=== PATIENT | female | born 1955 | race Caucasian/White ===

== ENCOUNTER 2021-05-05 08:24 | Outpatient (CLI) | payer MEDICARE, MEDICAID, SELFPAY ==
--- NOTE | ~2021-05-05 | XR_ITS ---
XR knee RT min 4V 05/05/2021 09:07 Indication: Right knee pain Procedure: 4 views right knee Comparison: No prior studies for comparison. Findings: There is moderate-severe tricompartment osteoarthritis of the right knee. Small joint effus ion. No foreign bodies. No acute fracture or traumatic malalignment. Osteopenia. Impression: 1: Moderate-severe tricompartment osteoarthritis. 2: Small joint effusion. Reviewed, dictated and finalized at location B. Impression: 1: Moderate-severe tricompartment osteoarthritis. 2: Small joint effusion.
== END 2021-05-05 08:25 | disposition home or self-care (01) ==
LOC: CHSIMG 08:30
PROVIDERS: PCP Emergency Medicine; Visit Provider Orthopaedic Surgery
DX: M25.561 Pain in right knee (principal)
CPT/HCPCS: 73564

== ENCOUNTER 2021-07-14 02:06 | Day surgery (SDC) | payer MEDICARE, MEDICAID, SELFPAY ==
[2021-07-02 13:20] VITALS: BMI 32.1
--- NOTE | 2021-07-14 07:24 | P.HP_ITS ---
History of Present Illness History of Present Illness Consent: Risks, benefits, and alternatives have been discussed and questions answered. Patient agrees to proceed with procedure. Chief complaint: anemia Narrative: Clara Paredes is a 66 year old female referred for investigation of anemia. She has not seen blood in her stools. She does have a family history of colon cancer, her mother had colon cancer when in her 80s Review of Systems Review of Systems: All systems reviewed & are unremarkable except as noted in HPI and below PMFSH Past Medical History Medical History Acute medial meniscus tear of right knee Arthritis Arthritis of knee, right Chronic, continuous use of opioids Hair loss Hypertension Obese Wears glasses Weight gain Surgical History Surgical History History of open reduction and internal fixation (ORIF) procedure left ankle 1973 Dr. Randall Family History Family History Other Arthritis Asthma Cerebrovascular accident Diabetes mellitus Hypertension Lung disease Social History Social History Smoking packs per day: 1 Smoking cigarettes per day: 20.0 Years smoked: 40 Smoking pack-years: 40.00 Smoking status: Current every day smoker Tobacco type: cigarettes Alcohol intake: never Substance use: never Substance use type: prescription drug Other substance usage details: [place] for chronic back pain and right knee pain Living arrangements: with friend(s) Additional living arrangements comments: fiance Gender identity (if verbalized by the patient): Female Sexual Orientation (if Verbalized by the Patient): Straight or Heterosexual Spiritual care concerns: No Meds Home Medications and Allergies Home Medications Medication Instructions Recorded Confirmed Type alendronate 70 mg tablet 70 mg PO DAILY tablet 05/05/21 07/14/21 History cyclobenzaprine 10 mg tablet 10 mg PO DAILY tablet 05/05/21 07/14/21 History gabapentin 100 mg capsule 100 mg PO DAILY 05/05/21 07/14/21 History hydrocodone 5 mg-acetaminophen 325 1 tablet PO QHS PRN 05/05/21 07/14/21 History mg tablet lisinopril 20 mg tablet 20 mg PO DAILY 05/05/21 07/14/21 History multivitamin 1 tablet PO DAILY 05/05/21 07/14/21 History oxybutynin chloride 5 mg tablet 5 mg PO DAILY 05/05/21 07/14/21 History trazodone 50 mg tablet 50 mg PO DAILY tablet 05/05/21 07/14/21 History Allergies Allergy/AdvReac Type Severity Reaction Status Date / Time Penicillins Allergy Unknown Swelling Verified 07/14/21 09:26 of the body Exam Resp: Auscultation: clear to auscultation bilaterally Cardio: Rate: regular rate Rhythm: regular rhythm GI: GI Palp: Yes Soft to palpation and No Tenderness to palpation present (GI) Assessment and Plan Assessment and plan (1) Anemia: Code(s): D64.9 - Anemia, unspecified Status: Acute Assessment and Plan: EGD with possible biopsy or dilatation or cautery.Colonoscopy with possible biopsy or polypectomy or cautery or injection of substances.
--- NOTE | 2021-07-14 07:42 | WPDANESEPPF ---
Anes - Initial Pre Proc Eval Procedure: Operation Date: 07/14/21 10:00 Proposed Procedures p Esophagogastroduodenoscopy & Colonoscopy - Filiberto Godoy MD Date/Time: 07/14/21 07:42 Surgeon: Filiberto Godoy MD Pre Op Diagnosis: anemia Patient Data Age: 66 Gender: F Height: 1.63 m Weight: 85 kg Allergies Allergy/AdvReac Type Severity Reaction Status Date / Time Penicillins Allergy Unknown Swelling Verified 07/14/21 09:26 of the body Home Medications Medication Instructions Recorded Confirmed Type alendronate 70 mg tablet 70 mg PO DAILY tablet 05/05/21 07/14/21 History cyclobenzaprine 10 mg tablet 10 mg PO DAILY tablet 05/05/21 07/14/21 History gabapentin 100 mg capsule 100 mg PO DAILY 05/05/21 07/14/21 History hydrocodone 5 mg-acetaminophen 325 1 tablet PO QHS PRN 05/05/21 07/14/21 History mg tablet lisinopril 20 mg tablet 20 mg PO DAILY 05/05/21 07/14/21 History multivitamin 1 tablet PO DAILY 05/05/21 07/14/21 History oxybutynin chloride 5 mg tablet 5 mg PO DAILY 05/05/21 07/14/21 History trazodone 50 mg tablet 50 mg PO DAILY tablet 05/05/21 07/14/21 History Patient hx anesthesia problems: none Family hx anesthesia problems: none PMFSH Past Medical History Medical History (Updated 07/14/21 @ 07:42 by Homero Vidal DO) Acute medial meniscus tear of right knee Arthritis Arthritis of knee, right Chronic, continuous use of opioids Hair loss Hypertension Obese Wears glasses Weight gain Surgical History Surgical History History of open reduction and internal fixation (ORIF) procedure left ankle 1974 Dr. Randall Family History Family History Other Arthritis Asthma Cerebrovascular accident Diabetes mellitus Hypertension Lung disease Social History Social History Smoking packs per day: 1 Smoking cigarettes per day: 20.0 Years smoked: 40 Smoking pack-years: 40.00 Smoking status: Current every day smoker Tobacco type: cigarettes Alcohol intake: never Substance use: never Substance use type: prescription drug Other substance usage details: [place] for chronic back pain and right knee pain Living arrangements: with friend(s) Additional living arrangements comments: fiance Gender identity (if verbalized by the patient): Female Sexual Orientation (if Verbalized by the Patient): Straight or Heterosexual Spiritual care concerns: No Anes - Eval Final PreProcedure Day of Procedure 07/14/21 07:42 Patient weight: obese Heart: regular rate and rhythm Lungs: clear to auscultation and normal air movement Airway: Mallampati scale class II Neurological: alert and oriented Last oral intake: >/= 8 hours ASA classification: III Emergent: no Anesthetic plan: proceed Anesthesia type and monitoring: general GIVS and standard monitoring Informed Consent: The patient's anesthetic plan and its attendant risks and benefits were discussed with the patient/family/POA. Questions were solicited and answers provided to the satisfaction of the patient/family/POA.
[2021-07-14 09:30] VITALS: BP 134/56; PULSE 90; RESP 18; TEMP 35.6; O2SAT 94; BMI 32.1
[2021-07-14] MEDS: LACTATED RINGERS 1,000 ML 150 ML IV CONT (09:45)
[2021-07-14 10:41] VITALS: BP 86/40; PULSE 78; RESP 22; O2SAT 99
[2021-07-14 10:51] VITALS: BP 101/56; PULSE 82; RESP 22; O2SAT 100
[2021-07-14 11:01] VITALS: BP 125/70; PULSE 78; RESP 20; O2SAT 96
== END 2021-07-14 11:14 | disposition home or self-care (01) ==
PROVIDERS: PCP Emergency Medicine; Visit Provider Internal Medicine Gastroenterology
PROC: 0DJ08ZZ Inspection of Upper Intestinal Tract, Via Natural or Artificial Opening Endoscopic (ICD-10-PCS; CPT 43235; principal; 2021-07-14 10:00)
DX: Z12.11 Encounter for screening for malignant neoplasm of colon (principal); D12.5 Benign neoplasm of sigmoid colon; K29.70 Gastritis, unspecified, without bleeding; D64.9 Anemia, unspecified; K57.30 Diverticulosis of large intestine without perforation or abscess without bleeding; K21.9 Gastro-esophageal reflux disease without esophagitis; M19.90 Unspecified osteoarthritis, unspecified site; I10 Essential (primary) hypertension; F17.210 Nicotine dependence, cigarettes, uncomplicated; E66.9 Obesity, unspecified; Z68.32 Body mass index [BMI] 32.0-32.9, adult
CPT/HCPCS: 43239; 45380; 45385; 87081; 88305; J2704; J7120

== ENCOUNTER 2023-11-01 08:43 | Emergency (ER) | payer MEDICARE, MEDICAID, SELFPAY ==
[2023-11-01] VITALS (29 sets, daily range): BP systolic 91–133; BP diastolic 51–78; PULSE 68–89; RESP 18–31; TEMP 36.8; O2SAT 70–95
--- NOTE | ~2023-11-01 | XR_ITS ---
Portable chest x-ray Comparison: None Clinical History: Dyspnea Findings: Lungs are clear, without focal consolidation or pleural effusion. Cardiomediastinal silho uette is stable. Bones and soft tissues are unremarkable. Impression: Clear lungs. Reviewed, dictated and finalized at location M. POURER Impression: Clear lungs.
--- NOTE | 2023-11-01 08:53 | ECG_ITS ---
Measurements Intervals [place] Rate: 75 P: 69 TN: 172 QRS: 139 QRSD: 94 T: 45 QT: 339 QTc: 381 Interpretive Statements SINUS RHYTHM WITH MARKED SINUS ARRHYTHMIA BASELINE ARTIFACT POSSIBLE RIGHT VENTRICULAR HYPERTROPHY [SOME/ALL OF: PROMINENT R IN V1, LATE TRANSITION, RAD, MENDY, SSS] LOW-VOLTAGE QRS IN PRECORDIAL LEADS BORDERLINE ECG NO PREVIOUS ECG AVAILABLE FOR COMPARISON Electronically Signed On 11-01-2023 17:05:12 TECHNICAL COMMUNICATION [employer] by Bran Bauer M.D.
--- NOTE | 2023-11-01 09:22 | ED.GENADULT ---
HPI - General Adult General Chief complaint: Shortness of Breath/Dyspnea Stated complaint: sob History of Present Illness HPI narrative: 68yo woman history of COPD, presents with shortness of breath. She is found to be cyanotic with cold fingers and very swollen legs. SpO2 on arrival is 67% on 4Lpm. Placed to BiPAP. No chest pain, fever. Chronic cough is nonproductive and no worse than normal. Lungs diminished, no rhonchi. CXR clear. Trop 251, BNPep 11k. EKG with right ventricular hypertrophy, likely cor pulmonale, but no sign of ischemia. NASIR with Cr 2.6, potassium 7.0. Calcium, Bicarb given. Related Data Home Medications Medication Instructions Recorded Confirmed alendronate 70 mg tablet 70 mg PO WEEKLY 05/05/21 11/01/23 cyclobenzaprine 10 mg tablet 10 mg PO DAILY PRN Muscle Pain 05/05/21 11/01/23 hydrocodone 5 mg-acetaminophen 325 1 tablet PO QID PRN Pain 05/05/21 11/01/23 mg tablet multivitamin 1 tablet PO DAILY 05/05/21 11/01/23 oxybutynin chloride 5 mg tablet 5 mg PO DAILY 05/05/21 11/01/23 trazodone 50 mg tablet 50 mg PO DAILY 05/05/21 11/01/23 albuterol sulfate 90 mcg/actuation 2 inh inhalation QID PRN Shortness 11/01/23 11/01/23 aerosol inhaler Of Breath fluticasone propionate 230 1 inh inhalation BID 11/01/23 11/01/23 mcg-salmeterol 21 mcg/actuation HFA inhaler (Advair HFA) losartan 50 mg-hydrochlorothiazide 1 tablet PO DAILY 11/01/23 11/01/23 12.5 mg tablet Allergies Allergy/AdvReac Type Severity Reaction Status Date / Time Penicillins Allergy Unknown Swelling Verified 11/01/23 09:45 of the body Review of Systems Review of Systems: All systems reviewed & are unremarkable except as noted in HPI and below Constitutional: Constitutional: Denies chills and Denies fever(s) ENT: Denies dysphagia Cardiovascular: Cardiovascular: Denies chest pain Respiratory: Respiratory: Reports chest congestion, Reports cough and Reports dyspnea Gastrointestinal: Gastrointestinal: Denies abdominal pain Musculoskeletal: Musculoskeletal: Denies back pain and Denies myalgias Neurologic: Denies confusion and Denies dizziness [facility] Past Medical History Medical History Acute medial meniscus tear of right knee Arthritis Arthritis of knee, right Chronic, continuous use of opioids Hair loss Hypertension Obese Wears glasses Weight gain Surgical History Surgical History History of open reduction and internal fixation (ORIF) procedure left ankle 1973 Dr. Randall Family History Family History Other Arthritis Asthma Cerebrovascular accident Diabetes mellitus Hypertension Lung disease Social History Social History Smoking packs per day: 1 Smoking cigarettes per day: 20.0 Years smoked: 40 Smoking pack-years: 40.00 Smoking status: Current every day smoker Tobacco type: cigarettes Alcohol intake: never Substance use: never Substance use type: prescription drug Other substance usage details: [place] for chronic back pain and right knee pain Living arrangements: with friend(s) Additional living arrangements comments: fiance Gender identity (if verbalized by the patient): Female Sexual Orientation (if Verbalized by the Patient): Straight or Heterosexual Spiritual care concerns: No Exam Const: General: alert and ill appearing Orientation/consciousness: patient oriented x3 HENMT: Head: normal to inspection, no contusions and no hematomas Eyes: Conjunctivae: conjunctivae normal Resp: Effort & Inspection: labored, retractions and uses accessory muscles Auscultation: diminished lung sounds Other: pursed lip breathing Cardio: Rate: regular rate Rhythm: regular rhythm Heart sounds: Murmur heart sound present Other: 01/18 systoli
[2023-11-01] MEDS: IPRATROPIUM 0.5 MG/ALBUTEROL SULFATE 2.5 MG AMPUL.NEB 3 ML INHALATION (09:24)
[2023-11-01 09:28] LABS: Basophils Absolute Auto 0.02 K/mm3 (0.00-0.10); Basophils Percent Auto 0.2 % (0.0-1.0); Eosinophils Absolute Auto 0.04 K/mm3 (0.02-0.50); Eosinophils Percent Auto 0.3 % (1.0-6.0); Hematocrit 54.2 % (35.0-42.0); Hemoglobin 16.2 g/dL (11.7-13.8); Immature Granulocyte Absolute 0.09 K/mm3 (0.00-0.00); Immature Granulocyte Percent A 0.7 % (0.0-0.0); Lymphocytes Absolute Auto 1.16 K/mm3 (1.10-4.50); Lymphocytes Percent Auto 9.5 % (18.0-42.0); Mean Corpuscular HGB Conc 29.9 g/dL (32.0-36.0); Mean Corpuscular Hemoglobin 27.8 pg (27.0-31.0); Mean Corpuscular Volume 93.1 fL (78.0-102.0); Mean Platelet Volume 10.9 fl (9.2-11.8); Monocytes Absolute Auto 0.85 K/mm3 (0.10-0.90); Monocytes Percent Auto 6.9 % (2.0-11.0); Neutrophils Absolute Auto 10.1 K/mm3 (1.7-7.2); Neutrophils Percent Auto 82.4 % (50.0-70.0); Nucleated Red Blood Cells Absolute Auto 0.12 K/mm3 (0.00-0.00); Platelet Count Result 247 K/mm3 (150-420); Red Blood Count 5.82 M/mm3 (4.20-5.40); Red Cell Distribution Width 20.8 % (11.6-14.4); White Blood Count 12.2 K/mm3 (4.8-10.8)
[2023-11-01] MEDS: ALBUTEROL SULFATE NEB 2.5 MG/3 ML INH 10 MG INHALATION (09:37)
[2023-11-01 09:49] LABS: Alanine Aminotransferase 32 U/L (14-59); Albumin Level 2.7 g/dL (3.4-5.0); Alkaline Phosphatase 118 U/L (46-116); Anion Gap -1 mmol/L (8-16); Aspartate Amino Transferase 95 U/L (15-37); Blood Urea Nitrogen 75 mg/dL (7-18); Calcium 9.4 mg/dL (8.5-10.1); Carbon Dioxide 38 mmol/L (21-32); Chloride 90 mmol/L (98-108); Estimated CRCL calculation 20 ml/min; Estimated Glomerular Filt Rate 19; Glucose 104 mg/dL (70-99); NT Pro B Type Natriuretic Pept 11742 pg/mL (0-125); Osmolality Calculated 286 mOsm/kg (285-295); Sodium 127 mmol/L (136-145); Total Protein 7.8 g/dL (6.4-8.2)
[2023-11-01 09:51] LABS: Lactic Acid Reflex 1.6 mmol/L (0.4-2.0)
--- NOTE | 2023-11-01 09:52 | PC.NURSE ---
lab reports Potassium of 7 and troponin 251, specimen was hemolyzed, redrawing labs right now.
[2023-11-01 10:01] LABS: Creatine Kinase 241 U/L (26-192); Magnesium 2.4 mg/dL (1.8-2.4)
[2023-11-01] MEDS: SODIUM CHLORIDE 0.9% IV 1,000 ML 250 ML IV CONT (11:12)
[2023-11-01 11:13] LABS: Base Excess ABG 0.5 mmol/L (0-2); HCO3 ABG 30.6 mmol/L (23-29); Oxygen Content ABG 20.9 %vol (16.0-22.0); Oxygen Saturation ABG 94.1 % (95-97); Oxyhemoglobin 87.7 % (94-100); PO2 ABG 83.9 mmHg (75-85); Total Hemoglobin 16.9 g/dL (12.0-18.0); pH ABG 7.24 (7.35-7.45)
[2023-11-01 11:15] LABS: Device BIPAP; Modified Allen's Test Pass; PCO2 ABG 73.8 mmHg (35-45); Site Drawn LEFT RADIAL
[2023-11-01] MEDS: SODIUM BICARBONATE 8.4% 50 MEQ/50 ML SYRINGE IV PUSH (11:15)
--- NOTE | 2023-11-01 11:15 | PC.NURSE ---
Lab reports critical PCO2 of 73.8, ERP made aware.
[2023-11-01 11:17] LABS: Liters per Minute 4.1 LPM
[2023-11-01 11:19] LABS: Expiratory Pressure 6 cmH2O; Inspiratory Pressure 12 cmH2O
--- NOTE | 2023-11-01 11:28 | PC.NURSE ---
Lab repots potassium of 5.3 on redraw. ERP made aware.
--- NOTE | 2023-11-01 11:50 | PCRCNOTE ---
per verbal order incresed IPAP to 14, due to blood gas results.
[2023-11-01 11:59] LABS: Influenza A QL RT-PCR Negative (Negative); Influenza B QL RT-PCR Negative (Negative); RSV RNA, RT-PCR Negative (Negative); SARS-CoV-2 RNA PCR Negative (Negative)
[2023-11-01] MEDS: FUROSEMIDE INJ 100 MG/10 ML VIAL 80 MG IV PUSH (12:10)
--- NOTE | 2023-11-07 15:01 | PC.NURSE ---
final blood culture reports x2 reviewed. no growth after 5 days. no change in plan of care.
== END 2023-11-01 15:00 | disposition home or self-care (01) ==
PROVIDERS: Emergency Provider Emergency Medicine; PCP Emergency Medicine
DX: J96.22 Acute and chronic respiratory failure with hypercapnia (principal); J96.21 Acute and chronic respiratory failure with hypoxia; R79.89 Other specified abnormal findings of blood chemistry; I11.9 Hypertensive heart disease without heart failure; J44.1 Chronic obstructive pulmonary disease with (acute) exacerbation; F17.210 Nicotine dependence, cigarettes, uncomplicated; Z79.891 Long term (current) use of opiate analgesic
CPT/HCPCS: 36415; 36600; 71045; 80053; 82550; 82805; 83605; 83735; 83880; 84484; 85025; 87040; 87637; 93005; 94640; 96361; 96374; 96375; 99284; J1100; J1940; J7030

== ENCOUNTER 2024-02-29 12:46 | Outpatient (CLI) | payer MEDICARE, MEDICAID, SELFPAY ==
--- NOTE | ~2024-02-29 | CT_ITS ---
CT Scan of the Chest without Contrast: Clinical Indication: Lung cancer screening, nicotine dependence Technique: Contiguous sections were acquired throughout the chest without intravenous contrast. Dose reduction technique was used on this scan by utilizing automated exposure control and iterative recon struction technique. The dose-length product (DLP) was 156.98 mGy-cm. Findings: There is no evidence of any significant mediastinal, hilar or axillary lymphadenopathy. Calcified med iastinal and right hilar lymph nodes are present. The mediastinal soft tissues appear normal. There is no evidence of pleural or pericardial effusion. There is linear scarring at the right upper lobe and lingula. No pulmonary nodule evident. There is a dditional atelectatic change at the lung bases bilaterally. Images through the upper abdomen reveal no abnormalities. Impression: Lung RADS 1: Negative. 12 month follow-up screening CT advised. Reviewed, dictated and finalized at [facility]. Impression: Lung RADS 1: Negative. 12 month follow-up screening CT advised.
== END 2024-02-29 12:47 | disposition home or self-care (01) ==
LOC: CHSIMG 12:47
PROVIDERS: PCP Emergency Medicine; Visit Provider Internal Medicine Pulmonary Disease
DX: Z87.891 Personal history of nicotine dependence (principal)
CPT/HCPCS: 71271

== ENCOUNTER 2025-05-12 18:10 | Emergency (ER) | payer OTHER, SELFPAY ==
[2025-05-12] VITALS (7 sets, daily range): BP systolic 116–144; BP diastolic 38–78; PULSE 82–100; RESP 16–18; TEMP 36.8; O2SAT 92–98
[2025-05-12] MEDS: SODIUM CHLORIDE 0.9% IV 1,000 ML 999 ML IV CONT (18:48)
--- NOTE | 2025-05-12 19:00 | PC.NURSE ---
ASSUMED CARE. REPORT RECEIVED FROM RICKEY HENSLEY. PATIENT CURRENTLY RESTING ON STRETCHER. CALL LIGHT IN REACH. LAB WORK IN PROCESS.
[2025-05-12 19:03] LABS: Basophils Absolute Auto 0.02 K/mm3 (0.00-0.10); Basophils Percent Auto 0.3 % (0.0-1.0); Eosinophils Absolute Auto 0.16 K/mm3 (0.02-0.50); Eosinophils Percent Auto 2.1 % (1.0-6.0); Hematocrit 33.3 % (35.0-42.0); Hemoglobin 10.3 g/dL (11.7-13.8); Immature Granulocyte Absolute 0.05 K/mm3 (0.00-0.00); Immature Granulocyte Percent A 0.7 % (0.0-0.0); Lymphocytes Absolute Auto 1.08 K/mm3 (1.10-4.50); Lymphocytes Percent Auto 14.4 % (18.0-42.0); Mean Corpuscular HGB Conc 30.9 g/dL (32-36); Mean Corpuscular Hemoglobin 26.2 pg (27.0-31.0); Mean Corpuscular Volume 84.7 fL (78.0-102.0); Mean Platelet Volume 9.2 fl (9.2-11.8); Monocytes Absolute Auto 0.62 K/mm3 (0.10-0.90); Monocytes Percent Auto 8.3 % (2.0-11.0); Neutrophils Absolute Auto 5.56 K/mm3 (1.70-7.20); Neutrophils Percent Auto 74.2 % (50.0-70.0); Platelet Count Result 261 K/mm3 (150-420); Red Blood Count 3.93 M/mm3 (4.20-5.40); Red Cell Distribution Width 20.4 % (11.6-14.4); White Blood Count 7.5 K/mm3 (4.8-10.8)
[2025-05-12] MEDS: levoFLOXacin 500 MG/D5W 100 ML 500 MG/100 ML BAG 100 MG IVPB (19:20)
[2025-05-12 19:21] LABS: Alanine Aminotransferase 18 U/L (6-35); Albumin Level 3.6 g/dL (3.5-5.1); Alkaline Phosphatase 131 U/L (38-126); Anion Gap 8 mmol/L (4-12); Aspartate Amino Transferase 24 U/L (14-36); Bilirubin,Total 0.3 mg/dL (0.2-1.3); Blood Urea Nitrogen 37 mg/dL (7-17); Calcium 8.8 mg/dL (8.4-10.2); Carbon Dioxide 28 mmol/L (22-30); Chloride 100 mmol/L (98-107); Estimated CRCL calculation 25 ml/min; Estimated Glomerular Filt Rate 24; Glucose 94 mg/dL (65-110); Osmolality Calculated 290 mOsm/kg (285-295); Potassium 3.1 mmol/L (3.4-5.0); Sodium 136 mmol/L (137-145); Total Protein 7.4 g/dL (6.3-8.2)
[2025-05-12 19:22] LABS: Lactic Acid Reflex 1.5 mmol/L (0.4-2.0)
--- NOTE | 2025-05-12 19:25 | ED_ITS ---
HPI - Skin/Abscess/Foreign Bdy General Chief complaint: Skin/Abscess/Foreign Body Stated complaint: right leg redness and swelling Time Seen by Provider: 05/12/25 18:17 Source: patient and family Mode of arrival: ambulatory Limitations: no limitations History of Present Illness HPI narrative: this is a 70-year-old female with history of neuropathy and presents with some blister on her right lower extremity with an area of erythema is warm and mildly tender has been on sulfa based antibiotics with minimal relief patient is currently afebrile with no calf pain no calf tenderness or calf swelling patient states that she allows her dog to lick her toes. Otherwise no shortness of breath or chest pain no nausea vomiting. MD complaint: abscess/boil Onset (ago): day(s) Tetanus up to date: yes Location: RLE and R foot Severity: moderate Severity scale (1-10): 3 Pain Consistency: constant Related Data Home Medications ?Medication ?Instructions ?Recorded ?Confirmed ?Last Taken ?Type alendronate 70 mg tablet 70 mg PO WEEKLY 05/05/21 11/01/23 Unknown History cyclobenzaprine 10 mg tablet 10 mg PO DAILY PRN Muscle Pain 05/05/21 11/01/23 Unknown History hydrocodone 5 mg-acetaminophen 325 1 tablet PO QID PRN Pain 05/05/21 11/01/23 07/13/21 History mg tablet multivitamin 1 tablet PO DAILY 05/05/21 11/01/23 Unknown History oxybutynin chloride 5 mg tablet 5 mg PO DAILY 05/05/21 11/01/23 Unknown History trazodone 50 mg tablet 50 mg PO DAILY 05/05/21 11/01/23 Unknown History albuterol sulfate 90 mcg/actuation 2 inh inhalation QID PRN Shortness 11/01/23 11/01/23 Unknown History aerosol inhaler Of Breath fluticasone propionate 230 1 inh inhalation BID 11/01/23 11/01/23 Unknown History mcg-salmeterol 21 mcg/actuation HFA inhaler (Advair HFA) losartan 50 mg-hydrochlorothiazide 1 tablet PO DAILY 11/01/23 11/01/23 Unknown History 12.5 mg tablet Allergies Allergy/AdvReac Type Severity Reaction Status Date / Time Penicillins Allergy Unknown Swelling Verified 05/12/25 18:25 of the body Review of Systems 2 Review of Systems: All systems reviewed & are unremarkable except as noted in HPI and below PMFSH Past Medical History Medical History Chronic, continuous use of opioids Obese Arthritis Hair loss Hypertension Wears glasses Weight gain Arthritis of knee, right Acute medial meniscus tear of right knee Surgical History Surgical History History of open reduction and internal fixation (ORIF) procedure left ankle 1973 Dr. Randall Family History Family History Other Arthritis Asthma Cerebrovascular accident Diabetes mellitus Hypertension Lung disease Social History Social History Smoking packs per day: 1 Smoking cigarettes per day: 20.0 Years smoked: 40 Smoking pack-years: 40.00 Smoking status: Current every day smoker Tobacco type: cigarettes Alcohol intake: never Substance use: never Substance use type: prescription drug Other substance usage details: norco for chronic back pain and right knee pain Living arrangements: with friend(s) Additional living arrangements comments: fiance Gender identity (if verbalized by the patient): Female Sexual Orientation (if Verbalized by the Patient): Straight or Heterosexual Spiritual care concerns: No Exam 2 Const: General: healthy appearing and no acute distress Nutritional Appearance: obese Orientation/consciousness: patient oriented x3 L imitations: no limitations Neck: Neck: normal visual inspection, no lymphadenopathy and no meningeal signs Chest: Chest palpation & inspection: normal inspection of the chest Resp: Effort & Inspection: normal respiratory effort Auscultation: clear to auscultation bilaterally Cardio: Rate: regular rate Rhythm: regular rhythm GI: Auscultation: normal bowel sounds : General: Yes bladder normal to palpation Skin: Wounds: wounds noted Other: Blister on the right toes with an area of erythema approximately 4cm in diameter up to lower mid mallory with no calf pain no calf swelling no calf tenderness. Course Course Emergency Course: Patient received IV with IV fluids and IV Levaquin, had blood work performed white count is 7.5. Vital Signs Vital signs: Vital Signs Temperature 36.8 C 05/12/25 18:10 Pulse Rate 100 05/12/25 18:10 Respiratory Rate 18 05/12/25 18:10 Blood Pressure 144/77 H 05/12/25 18:10 Pulse Oximetry 92 05/12/25 18:10 Oxygen Delivery Room Air 05/12/25 18:10 Temperature 36.8 C 05/12/25 18:10 Pulse Rate 91 05/12/25 19:01 Respiratory Rate 16 05/12/25 19:01 Blood Pressure 126/67 05/12/25 19:01 Pulse Oximetry 94 05/12/25 19:01 Oxygen Delivery Room Air 05/12/25 19:01 MDM - Skin/Abscess/Foreign Bdy Lab Data 05/12/25 18:55 05/12/25 18:55 Labs: Lab Results 05/12/25 Range/Units 18:55 WBC 7.5 (4.8-10.8) K/mm3 RBC 3.93 L (4.20-5.40) M/mm3 Hgb 10.3 L (11.7-13.8) g/dL Hct 33.3 L (35.0-42.0) % MCV 84.7 (78.0-102.0) fL MCH 26.2 L (27.0-31.0) pg MCHC 30.9 L (32-36) g/dL RDW 20.4 H (11.6-14.4) % Plt Count 261 (150-420) K/mm3 MPV 9.2 (9.2-11.8) fl Immature Gran % (Auto) 0.7 H (0.0-0.0) % Neut % (Auto) 74.2 H (50.0-70.0) % Lymph % (Auto) 14.4 L (18.0-42.0) % Nobles % (Auto) 8.3 (2.0-11.0) % Eos % (Auto) 2.1 (1.0-6.0) % Baso % (Auto) 0.3 (0.0-1.0) % Lymph # (Auto) 1.08 L (1.10-4.50) K/mm3 Nobles # (Auto) 0.62 (0.10-0.90) K/mm3 Eos # (Auto) 0.16 (0.02-0.50) K/mm3 Baso # (Auto) 0.02 (0.00-0.10) K/mm3 Abs Immat Gran (auto) 0.05 H (0.00-0.00) K/mm3 Absolute Neuts (auto) 5.56 (1.70-7.20) K/mm3 Absolute Nucleated RBC 0.00 (0.00-0.00) K/mm3 Nucleated RBC % 0.0 (0-0.0) % Sodium Pending Potassium Pending Chloride Pending Carbon Dioxide Pending Anion Gap Pending BUN Pending Creatinine Pending Estim Creat Clear Calc Pending Estimated GFR Pending Glucose Pending Calculated Osmolality Pending Lactic Acid Pending Calcium Pending Total Bilirubin Pending AST Pending ALT Pending Alkaline Phosphatase Pending NT-Pro-B Natriuret Pep Pending Total Protein Pending Albumin Pending Critical Care Time Critical Care Time Critical Care Time: No Discharge Plan Discharge Clinical Impression: Cellulitis Patient Disposition: Home Condition: Stable Instructions: Antibiotic Form, Cellulitis (ED) Additional Instructions: Advised patient to take medication as prescribed and to follow with primary care physician with the next 3 days for further evaluation treatment. Patient Language: Kinyarwanda Prescriptions: New levofloxacin 500 mg tablet 500 mg PO DAILY Qty: 7 0RF No Action albuterol sulfate 90 mcg/actuation HFA aerosol inhaler 2 inh INHALATION QID PRN (Reason: Shortness Of Breath) losartan-hydrochlorothiazide 50-12.5 mg tablet 1 tablet PO DAILY fluticasone propion-salmeterol [Advair HFA] 230-21 mcg/actuation HFA aerosol inhaler 1 inh INHALATION BID alendronate 70 mg tablet 70 mg PO WEEKLY trazodone 50 mg tablet 50 mg PO DAILY oxybutynin chloride 5 mg tablet 5 mg PO DAILY hydrocodone-acetaminophen 5-325 mg tablet 1 tablet PO QID PRN (Reason: Pain) Patient Comments: per patient med list cyclobenzaprine 10 mg tablet 10 mg PO DAILY PRN (Reason: Muscle Pain) Patient Comments: per patient med list multivitamin Tablet 1 tablet PO DAILY Follow-up/Referrals: Wilber,Keegan Luo MD [Primary Care Provider] -
[2025-05-12 19:30] LABS: NT Pro B Type Natriuretic Pept 423 pg/mL (19.9-100)
[2025-05-12] MEDS: POTASSIUM BICARBONATE 25 MEQ TABEF 50 MEQ PO (19:40)
--- NOTE | 2025-05-12 19:45 | PC.NURSE ---
PATIENT IS RESTING ON STRETCHER. DRINKING KLYTE. AT HER SIDE. DENIES ANY NEEDS
--- NOTE | 2025-05-14 12:53 | PC.NURSE ---
preliminay blood no growth
--- NOTE | 2025-05-19 12:43 | PC.NURSE ---
Final blood culture report; no growth after 5 days.
== END 2025-05-12 20:33 | disposition home or self-care (01) ==
PROVIDERS: Emergency Provider Emergency Medicine; PCP Emergency Medicine
DX: L03.115 Cellulitis of right lower limb (principal); I10 Essential (primary) hypertension; F17.210 Nicotine dependence, cigarettes, uncomplicated
CPT/HCPCS: 36415; 80053; 83605; 83880; 85025; 87040; 96361; 96365; 99284; A9270; J1956; J7030

== ENCOUNTER 2025-05-30 05:14 | Emergency (ER) | payer OTHER, SELFPAY ==
[2025-05-30 05:14] VITALS: BP 140/96; PULSE 86; RESP 18; TEMP 36.6; O2SAT 93
--- NOTE | 2025-05-30 05:15 | ED.WOUNDLAC ---
HPI - Wound/Laceration General Chief Complaint: Wound/Laceration Stated Complaint: Wound Dressings Time Seen by Provider: 05/30/25 05:14 Source: patient Mode of arrival: ambulatory Limitations: no limitations History of Present Illness HPI narrative: Patient is a 70-year-old female with a recent in the past week PAD stenting on bilateral lower extremity and she came to ER for bandage changes. Patient noted some blood on the bandages and did not want to change them herself at this time. She also has a right lower extremity cellulitis which is been dealt with at the hospital where she had the procedure and she is on antibiotics at this time. She sees the surgeon in 1 day. Onset (ago): week(s) ( One week since procedure) Extremity Location: Bilateral: thigh Place: home Context: other ( patient had PA D stents placed on bilateral lower extremity at her thighs and she would like the dressing changed at this time) Associated symptoms: none Treatments prior to arrival: bandage Related Data Home Medications ?Medication ?Instructions ?Recorded ?Confirmed ?Last Taken ?Type alendronate 70 mg tablet 70 mg PO WEEKLY 05/05/21 11/01/23 Unknown History cyclobenzaprine 10 mg tablet 10 mg PO DAILY PRN Muscle Pain 05/05/21 11/01/23 Unknown History hydrocodone 5 mg-acetaminophen 325 1 tablet PO QID PRN Pain 05/05/21 11/01/23 07/13/21 History mg tablet multivitamin 1 tablet PO DAILY 05/05/21 11/01/23 Unknown History oxybutynin chloride 5 mg tablet 5 mg PO DAILY 05/05/21 11/01/23 Unknown History trazodone 50 mg tablet 50 mg PO DAILY 05/05/21 11/01/23 Unknown History albuterol sulfate 90 mcg/actuation 2 inh inhalation QID PRN Shortness 11/01/23 11/01/23 Unknown History aerosol inhaler Of Breath fluticasone propionate 230 1 inh inhalation BID 11/01/23 11/01/23 Unknown History mcg-salmeterol 21 mcg/actuation HFA inhaler (Advair HFA) losartan 50 mg-hydrochlorothiazide 1 tablet PO DAILY 11/01/23 11/01/23 Unknown History 12.5 mg tablet Allergies Allergy/AdvReac Type Severity Reaction Status Date / Time Penicillins Allergy Unknown Swelling Verified 05/30/25 05:16 of the body Review of Systems Review of Systems: All systems reviewed & are unremarkable except as noted in HPI and below Constitutional: Constitutional: Reports no additional constitutional complaints Eyes: Eyes: Reports no additional eye complaints ENT: Reports system reviewed and no additional complaints, except as documented Cardiovascular: Cardiovascular: Reports no additional cardiovascular complaints Respiratory: Respiratory: Reports no additional respiratory complaints Gastrointestinal: Gastrointestinal: Reports no additional gastrointestinal complaints Genitourinary: Genitourinary: Reports no additional female genitourinary complaints Musculoskeletal: Musculoskeletal: Reports no additional musculoskeletal complaints Integumentary/Breasts: Skin/Breast: Reports system reviewed and no additional complaints, except as docu Neurologic: Reports system reviewed and no additional complaints, except as documented Psychiatric: Psychiatric: Reports no additional psychiatric complaints Endocrine: Endocrine: Reports no additional endocrine complaints Hematologic/Lymphatic: Hematologic/Lymphatic: Reports no additional hematologic/lymphatic complaints Allergic/Immunologic: Allergic/Immunologic: Reports no additional allergic/immunologic complaints PMFSH Past Medical History Medical History Chronic, continuous use of opioids Obese Arthritis Hair loss Hypertension Wears glasses Weight gain Arthritis of knee, right Acute medial meniscus tear of right knee Surgical History Surgical History History of open reduction and internal fixation (ORIF) procedure left ankle 1974 Dr. Randall Family History Family History Other Arthritis Asthma Cerebrovascular accident Diabetes mellitus Hypertension Lung disease Social History Social History Smoking packs per day: 1 Smoking cigarettes per day: 20.0 Years smoked: 40 Smoking pack-years: 40.00 Smoking status: Current every day smoker Tobacco type: cigarettes Alcohol intake: never Substance use: never Substance use type: prescription drug Other substance usage details: norco for chronic back pain and right knee pain Living arrangements: with friend(s) Additional living arrangements comments: fiance Gender identity (if verbalized by the patient): Female Sexual Orientation (if Verbalized by the Patient): Straight or Heterosexual Spiritual care concerns: No Exam Const: General: healthy appearing Nutritional Appearance: well nourished Orientation/consciousness: patient oriented x3 HENMT: Head: normal to inspection Ears: external ears normal Face/Nose/Sinus: Normal external nose present Eyes: Conjunctivae: conjunctivae normal Pupils: Equal, round and reactive pupils present EOM: EOMs intact bilaterally Neck: Neck: normal visual inspection Chest: Chest palpation & inspection: normal inspection of the chest Resp: Effort & Inspection: normal respiratory effort and not labored Auscultation: clear to auscultation bilaterally and no crackles Cardio: Rate: regular rate Rhythm: regular rhythm Heart sounds: no murmurs GI: Inspection: non-distended GI Palp: Yes Soft to palpation and No Tenderness to palpation present (GI) Auscultation: normal bowel sounds Back/Spine/Pelvis: Back: no CVA tenderness Skin: General skin exam: normal color Rashes: no rashes Wounds: no wounds Other: -bilateral thighs have 10 cm of linear sutured surgical sites without signs of infection or abscess; no bleeding but there appears to be recent bleeding on the bandages; no signs of infection and no pus drainage -right lower extremity from the calf down to the foot has a erythema and swelling which she said was noted during her hospitalization a week ago and they started her on antibiotics Neuro: General: patient oriented x3, moves all extremities and no meningeal signs Cranial nerves: Yes Nystagmus not present Speech: normal speech Gait exam (Neuro): Normal gait present Extrem: General: normal to inspection Psych: Mental Status: mental status grossly normal Affect: normal affect Attitude: cooperative Course Vital Signs Vital signs: Vital Signs Temperature 36.6 C 05/30/25 05:14 Pulse Rate 86 05/30/25 05:14 Respiratory Rate 18 05/30/25 05:14 Blood Pressure 140/96 H 05/30/25 05:14 Pulse Oximetry 93 05/30/25 05:14 Oxygen Delivery Room Air 05/30/25 05:14 Temperature 36.6 C 05/30/25 05:14 Pulse Rate 86 05/30/25 05:14 Respiratory Rate 18 05/30/25 05:14 Blood Pressure 140/96 H 05/30/25 05:14 Pulse Oximetry 93 05/30/25 05:14 Oxygen Delivery Room Air 05/30/25 05:14 MDM - Wound/Laceration MDM Narrative Medical decision making narrative: patient is a 70-year-old female with bilateral lower extremity PA D stenting of week ago and wanted to get her bandages changed at this time. We will put antibiotic ointment after cleaning the area on the surgical site and an ABD pad taped to the thigh which was similar to what she had on her presentation to the emergency room. Discharge Plan Discharge Clinical Impression: Encounter for examination of surgical site, Encounter for wound care Patient Disposition: Home Condition: Stable Instructions: Care For Your Stitches (ED), Acute Wounds (DC) Additional Instructions: please follow-up with the surgeon as planned in the next day. Do not change these dressings until you see the surgeon. Patient Language: Greenlandic Prescriptions: No Action albuterol sulfate 90 mcg/actuation HFA aerosol inhaler 2 inh INHALATION QID PRN (Reason: Shortness Of Breath) losartan-hydrochlorothiazide 50-12.5 mg tablet 1 tablet PO DAILY fluticasone propion-salmeterol [Advair HFA] 230-21 mcg/actuation HFA aerosol inhaler 1 inh INHALATION BID levofloxacin 500 mg tablet 500 mg PO DAILY Qty: 7 0RF potassium chloride 20 mEq packet 20 meq PO BID 3 Days Qty: 6 0RF alendronate 70 mg tablet 70 mg PO WEEKLY trazodone 50 mg tablet 50 mg PO DAILY oxybutynin chloride 5 mg tablet 5 mg PO DAILY hydrocodone-acetaminophen 5-325 mg tablet 1 tablet PO QID PRN (Reason: Pain) Patient Comments: per patient med list cyclobenzaprine 10 mg tablet 10 mg PO DAILY PRN (Reason: Muscle Pain) Patient Comments: per patient med list multivitamin Tablet 1 tablet PO DAILY Follow-up/Referrals: Wilber,Keegan Luo MD [Primary Care Provider] - Time of Disposition: 05:26
--- OUTSIDE RECORDS SUMMARY | 2025-05-30 05:16 | XMS_ITS | Encounter Summary ---
Author Organization [facility] Address [address] [place] [address] Care Team Providers Care Skiver Welt End Name Role Phone Keegan Merino MD Primary Care Provider [phone] Encounter Details Date Type Department Care Team (Late st Contact Info) Description 03/13/2025 Therapy Plan [facility] [address] [place], [place] [id number] Keegan Merino MD [address] [place] [address] [phone] Social History Tobacco Use Types Packs/Day Years Used Date Smoking Tobacco: Every Day Cigarettes 1 48 Smokeless Tobacco: Former Comments:10 a day Alcohol Use Standard Drinks/Week Comments Yes 0 (1 standard drink = 0.6 oz pur e alcohol) on special occasions [facility] Utilities Answer Date Recorded In the past 12 months has e electric, gas, oil, or water company threatened to shut off services in your home? No 11/01/2023 Humiliation, Afraid, Rape, and Kick questionnair e Answer Date Recorded Within the last year, have y ou been afraid of your partner or ex-partner? No 11/01/2023 Within the last year, have y ou been humiliated or emotionally abused in other ways by your partner or ex-partner? No Within the last year, have y ou been kicked, hit, slapped, or otherwise physically hurt by your partner or ex-partner? No 11/01/2023 Within the last year, have y ou been raped or forced to have any kind of sexual activity by your partner or ex-partner? No 11/01/2023 Overall Financial Resource Strain (CARDIA) Answe r Date Recorded How hard is it for you to pa y for the very basics like food, housing, medical care, and heating? Not hard at all 11/01/2023 Hunger Vital Sign Answer Date Recorded Within the past 12 months, y ou worried that your food would run out before you got the money to buy more. Never true 11/01/20 23 Within the past 12 months, t he food you bought just didn't last and you didn't have money to get more. Never true 11/01/2023 PRAPARE - Transportation Answer Date Re corded In the past 12 months, has l ack of transportation kept you from medical appointments or from getting medications? No 10/15 In the past 12 months, has l ack of transportation kept you from meetings, work, or from getting things needed for daily living? No 11/01/2023 Housing Stability Vital Sign Answer Blaze e Recorded In the last 12 months, was t here a time when you were not able to pay the mortgage or rent on time? No 11/01/2023 In the last 12 months, how many places have you lived? 1 11/01/2023 In the last 12 months, was t here a time when you did not have a steady place to sleep or slept in a fpc (including now)? No 11/01/2023 Comments No Sex and Gender Information Value Date Recorded Sex Assigned at Female 05/14/2025 12:33 PM CDT Legal Sex Female 6:51 PM CDT Gender Identity Not on file Sexual Orientation Not on file documented as of this encounter Functional Status * Are you deaf or do you have serious difficulty hearing Answer Date of Assessment Author Status No 11/01/2023 4:19 PM BUSINESS DEVELOPMENT OFFICER Wendy López R N Active * Are you blind or do you have serious difficulty seeing, even when wearing glasses? Answer Date of Assessment Author Status No 11/01/2023 4:19 PM Wendy Ortiz RN Active * Do you have serious difficulty walking or climbing stairs? Answer Date of Assessment Author Status No 11/01/2023 4:19 PM Wendy Ortiz R N Active * Do you have difficulty dressing or bathing? Answer Date of Assessment Author Status No 11/01/2023 4:19 PM Wendy Ortiz R N Active * Because of a physical, mental, or emotional condition, do you have difficulty doing errands alone such as visiting a doctor's office or shopping? Answer Date of Assessment Author Status No 11/01/2023 4:19 PM Wendy Ortiz R N Active documented as of this encounter Mental Status * Because of a physical, mental, or emotional condition, do you have serious difficulty concentrating, remembering, or making decisions? Answer Entry Date Author Status No 11/01/2023 4:19 PM Wendy Ortiz R N Active documented in this encounter Plan of Treatment Not on file documented as of this encounter Goals Goal Patient Goal Type Associated Problems Recent Progress Patient-Stated? Author Health - patient able to perform ADLs independently General No Hermelinda Nichols, TIMBER SELECTOR Patient will return to prior living situation and remain independent in ADLs upon discharge from hospital General No Hermelinda Nichols TIMBER SELECTOR Health - patient able to perform ADLs independently General No Ca Beyer RN documented as of this encounter Visit Diagnoses Diagnosis Anemia, unspecified- Primary Iron deficiency anemia Iron deficiency anemia, unspecified documented in this encounter Additional Health Concerns Infection Onset Date Last Indicated Resolved Time MRSA Comment:05/15/22 kell (MICHAEL) 05/16/2022 05/16/2022 documented as of this encounter Care Teams Skiver Welt End Relationship Specialty Start Date End Date Keegan Merino MD [address] [place] [address] PCP - General FAMILY PRACTICE 07/24/19 documented as of this encounter
--- OUTSIDE RECORDS SUMMARY | 2025-05-30 05:16 | XMS_ITS | Clinical Summary ---
Author Organization [facility] Address [address] [address] Care Team Providers Care Timber Cruiser Name Role Phone Keegan Merino MD Primary Care Provider [phone] Source Comments [facility],non-owned Affiliates and Associated Physician Practices is amultiple site organization consisting of ambulatory clinics and hospital sitesin [place], [place], [place] and [place]. This disclosure is being madepursuant to the Care Everywhere program and may not contain all information available regarding this patient. Last updated 18.[facility] Allergies Active Allergy Reactions Criticality Noted Date Comments Penicillins Swelling 10/21/2011 Medications * Be aware that medications may not be up to date on this document. Alwaysverify current medications with the patient. alendronate (FOSAMAX) 70 MG tablet TAKE 1 TABLET BY MOUTH ONCE A WEEK Active calcium carbonate-vitamin D 600-400 MG-UNIT tablet Take 1 (one) tablet by mouth once daily Active cyclobenzaprine (FLEXERIL) 10 MG tablet Take 1 (one) tablet by mouth nightly as needed Active Multiple Vitamin (THERA) tablet Take 1 (one) tablet by mouth once daily Active oxybutynin (DITROPAN) 5 MG tablet Take 1 (one) tablet by mouth once daily Active traZODone (DESYREL) 50 MG tablet Take 1 (one) tablet by mouth at bedtime 022 Active Probiotic Product (PROBIOTIC DAILY PO) Take 200 mg by mouth Active losartan - hydroCHLOROthiazide (Hyzaar) 50-12.5 MG tablet Take 1 (one) tablet by mouth once daily 023 Active acetaminophen CR (Tylenol Arthritis Pain) 650 MG tablet Take 1 (one) tablet by mouth every 8 hours as needed for Pain Pt takes 2 tablets Active clopidogrel (plaVIX) 75 MG tablet Take 1 (one) tablet by mouth once daily 90 tablet 024 Active aspirin (Aspirin) 81 MG chew tablet Take 1 (one) tablet by mouth once daily for 90 days 30 tablet 2 024 Active furosemide (Lasix) 40 MG tablet Active HYDROcodone-acetaminop hen ([place]) 5-325 MG tablet Active Trelegy Ellipta 200-62.5-25 MCG/ACT inhaler 1 (one) puff once daily 024 Active cephalexin (Keflex) 500 MG capsule Take 1 (one) capsule by mouth 4 times daily for 14 days 56 capsule 025 2024 Active folic acid (Folvite) 1 MG tablet Take 1 (one) tablet by mouth once daily 90 tablet 1 025 Active doxycycline monohydrate 100 MG capsule Take 1 (one) capsule by mouth every 12 hours for 14 days 28 capsule 025 2024 Active cyanocobalamin (Vitamin B-12) 1000 MCG tablet Take 1 (one) tablet by mouth once daily 90 tablet 1 025 Active ferrous sulfate 325 (65 FE) MG tablet Take 1 (one) tablet by mouth once daily 100 tablet 4 025 Active polyethylene glycol 3350 (Miralax) 17 GM/SCOOP powder Take 17 (seventeen) g by mouth once daily as needed for Constipation 527 g 025 Active oxyCODONE, immediate release, (Roxicodone) 10 MG tabletIndications:Acut e lower limb ischemia,Limb ischemia Take 1 (one) tablet by mouth every 6 hours as needed 8 tablet 025 2024 Active Problems Problem Noted Date Diagnosed Date Anemia 05/26/2025 Assessment & Plan (05/26/2025 1:13 PM CDT): - iron panel, ferritin, b12, and folate levels QUYEN (obstructive sleep apnea) 05/25/2025 Assessment & Plan (05/26/2025 7:55 AM CDT): - on 2L/RA. No acute distress - Continue on incruse ellipta, symbicort and albuterol. CPAP at night Assessment & Plan (05/25/2025 2:27 AM CDT): - on 2L/RA. No acute distress - Continue on incruse ellipta, symbicort and albuterol. 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 Admitted to MICU with vascular surgery. Sunderwent embolectomy of R iliofemoral artery w/ L to R fem bypass w/ PTFE graft and wound vac. Pt s/p heparin gtt and transitioned to DAPT. - appreciate vascular surgery recs. Continue q4h neurovascular checks. PT/OT - continue doxy and keflex, likely only needs 7d course - continue on aspirin and plavix. 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 Admitted to MICU with vascular surgery. Sunderwent embolectomy of R iliofemoral artery w/ L to R fem bypass w/ PTFE graft and wound vac. Pt s/p heparin gtt and transitioned to DAPT. - appreciate vascular surgery recs. Continue q4h neurovascular checks. PT/OT - On empiric doxy and cefdinir. Recommended 6 weeks of treatment course of bactrim. Will need to discuss further with vascular surgery for further consensus on treatment course (7-10d seems more appropriate from my standpoint). - continue on aspirin and plavix. Pain control ordered - may look to resume lasix, hyzaar as clinically appropriate. Will monitor HD for now, as she is just out of the ICU and VS stable. 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 Admitted to MICU with vascular surgery. Sunderwent embolectomy of R iliofemoral artery w/ L to R fem bypass w/ PTFE graft and wound vac. Pt s/p heparin gtt and transitioned to DAPT. - appreciate vascular surgery recs. Continue q4h neurovascular checks. PT/OT - continue doxy and keflex, likely only needs 7d course - continue on aspirin and plavix. 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 Admitted to MICU with vascular surgery. Sunderwent embolectomy of R iliofemoral artery w/ L to R fem bypass w/ PTFE graft and wound vac. Pt s/p heparin gtt and transitioned to DAPT. - appreciate vascular surgery recs. Continue q4h neurovascular checks. PT/OT - On empiric doxy and cefdinir. Recommended 6 weeks of treatment course of bactrim. Will need to discuss further with vascular surgery for further consensus on treatment course (7-10d seems more appropriate from my standpoint). - continue on aspirin and plavix. Pain control ordered - may look to resume lasix, hyzaar as clinically appropriate. Will monitor HD for now, as she is just out of the ICU and VS stable. 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 Admitted to MICU with vascular surgery. Sunderwent embolectomy of R iliofemoral artery w/ L to R fem bypass w/ PTFE graft and wound vac. Pt s/p heparin gtt and transitioned to DAPT. - appreciate vascular surgery recs. Continue q4h neurovascular checks. PT/OT - continue doxy and keflex, likely only needs 7d course - continue on aspirin and plavix. 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 Admitted to MICU with vascular surgery. Sunderwent embolectomy of R iliofemoral artery w/ L to R fem bypass w/ PTFE graft and wound vac. Pt s/p heparin gtt and transitioned to DAPT. - appreciate vascular surgery recs. Continue q4h neurovascular checks. PT/OT - On empiric doxy and cefdinir. Recommended 6 weeks of treatment course of bactrim. Will need to discuss further with vascular surgery for further consensus on treatment course (7-10d seems more appropriate from my standpoint). - continue on aspirin and plavix. Pain control ordered - may look to resume lasix, hyzaar as clinically appropriate. Will monitor HD for now, as she is just out of the ICU and VS stable. 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 No acute distress - Continue on incruse ellipta, symbicort and albuterol. CPAP at night Assessment & Plan (05/25/2025 2:27 AM CDT): - on 2L/RA. No acute distress - Continue on incruse ellipta, symbicort and albuterol. 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 Admitted to MICU with vascular surgery. Sunderwent embolectomy of R iliofemoral artery w/ L to R fem bypass w/ PTFE graft and wound vac. Pt s/p heparin gtt and transitioned to DAPT. - appreciate vascular surgery recs. Continue q4h neurovascular checks. PT/OT - continue doxy and keflex, likely only needs 7d course - continue on aspirin and plavix. 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 Admitted to MICU with vascular surgery. erwe embolectomy of R iliofemoral artery w/ L to R fem bypass w/ PTFE graft and wound vac. Pt s/p heparin gtt and transitioned to DAPT. - appreciate vascular surgery recs. Continue q4h neurovascular checks. PT/OT - On empiric doxy and cefdinir. Recommended 6 weeks of treatment course of bactrim. Will need to discuss further with vascular surgery for further consensus on treatment course (7-10d seems more appropriate from my standpoint). - continue on aspirin and plavix. Pain control ordered - may look to resume lasix, hyzaar as clinically appropriate. Will monitor HD for now, as she is just out of the ICU and VS stable. Bilateral leg edema 01/15/2022 Loose, body, joint, knee, right 04/10/2021 Appiah's cyst of knee, left 07/02/2020 Primary osteoarthritis of right knee 06/05/2020 Resolved Problems Problem Noted Date Diagnosed Date Resolved Date Pre-op evaluation 04/14/2024 04/16/2024 PAD (peripheral artery disease) 01/15/2022 04/16/2024 Leg ulcer, right, with fat layer exposed 01/15/2022 05/25/2024 Tobacco abuse 01/15/2022 05/25/2024 Non-healing wound of right lower extremity 07/15/2021 05/25/2024 Cellulitis 06/30/2021 05/25/2024 Encounters Date Type Department Care Team Description 05/29/2025 Telephone Transitional Care at [facility] [address] [place] [phone] Berenice Benito, agricultural service worker 05/28/2025 Transitional Care [facility] [address] [place] [phone] Anne Quiñones RN Transitions Of Care 05/22/2025 11:35 AM CDT - 05/22/2025 3:26 PM CDT Surgery [facility] [address] [place] [address] Mckinley Tripathi MD RIGHT FEMORAL EMBOLECTOMY; FEMORAL-FEMORAL BYPASSLEVEL 4 [phone] 05/22/2025 11:33 AM CDT Anesthesia Event [facility] [address] [place] [address] Kemi Duval MD 05/22/2025 1:55 AM CDT - 05/27/2025 3:54 PM CDT Hospital Encounter [facility] [address] [place] [address] Ry Kong MD Naidoo, MD Ga Lopez Joshua, MD Kraemer, Carl M, MD Wittgen, Catherine, MD Kamel, Ghassan, MD Bastin, Joya Taylor MD Vascular Surgery Discharge Disposition: Home or Self Care 05/21/2025 Travel 05/17/2025 Telephone [facility] - Vascular [facility] [address] [place] [address] Smradha, Glen Leonard MD Lower Leg Pain 05/17/2025 Travel from Last 3 Months Immunizations Immunization Administration Dates Next Due Covid xkoto primary monoval ent 12+ yr 0.3mL Purple cap 01/27/2021,02/18/2012 INFLUENZA VACCINE 09/29/2021,08/13/2020,08/17/20 19 Pneumococcal Pcv13 Conj 03/04/2021 Social History Tobacco Use Types Packs/Day Years Used Date Smoking Tobacco: Former Cigarettes 0.5 50 1 12/16/1972 - 10/15/2023 Smokeless Tobacco: Never Tobacco Cessation:Counseling Given: No Alcohol Use Standard Drinks/Week Comments Not Asked 0 (1 standard drink = 0.6 oz pur e alcohol) rarely AUDIT-C Answer Date Recorded Q1: How often do you have a drink containing alc ohol? Monthly or less 05/22/2025 Q2: How many drinks containi ng alcohol do you have on a typical day when you are drinking? 1 or 2 05/22/2025 Q3: How often do you have si x or more drinks on one occasion? Never 05/22/2025 Overall Financial Resource Strain (CARDIA) Answe r Date Recorded How hard is it for you to pa y for the very basics like food, housing, medical care, and heating? Not hard at all 05/22/2025 [facility] [place] [facility] - Occupational Stress Questionnaire Answer Date Recorded Do you feel stress - tense, restless, nervous, or anxious, or unable to sleep at night because your mind is troubled all the time - these days? Only a little 05/22/2025 Hunger Vital Sign Answer Date Recorded Within the past 12 months, y ou worried that your food would run out before you got the money to buy more. Never true 05/22/20 25 Within the past 12 months, t he food you bought just didn't last and you didn't have money to get more. Never true 05/22/2025 PRAPARE - Transportation Answer Date Re corded In the past 12 months, has l ack of transportation kept you from medical appointments or from getting medications? No 06/2025 In the past 12 months, has l ack of transportation kept you from meetings, work, or from getting things needed for daily living? No 05/22/2025 Housing Stability Vital Sign Answer Blaze e Recorded In the last 12 months, was t here a time when you were not able to pay the mortgage or rent on time? No 05/22/2025 In the past 12 months, how m any times have you moved where you were living? 0 05/22/2025 At any time in the past 12 m [facility], were you homeless or living in a chcf (including now)? No 05/22/2025 Comments No Sex and Gender Information Value Date Recorded Sex Assigned at Not on file Legal Sex Female 9:57 AM CDT Gender Identity Not on file Sexual Orientation Not on file Last Filed Vital Signs Vital Sign Reading Time Taken Comments Blood Pressure 144/60 05/27/2025 11:46 AM CDT Pulse 93 05/27/2025 11:46 AM CDT Temperature 36.7 C (98 F) 05/27/2025 11:46 AM CDT Respiratory Rate 18 05/27/2025 11:46 AM CDT Oxygen Saturation 91% 05/27/2025 11:46 AM CDT Inhaled Oxygen Concentration 21% 05/26/2025 1 1:29 PM CDT Weight 97 kg (213 lb 13.5 oz) 05/27/2025 4:00 AM CDT Height 160 cm (5' 3) 05/22/2025 5:30 PM CDT Body Mass Index 37.88 05/22/2025 5:30 PM CDT Plan of Treatment Upcoming Encounters Date Type Department Care Team (Late st Contact Info) Description 05/31/2025 10:15 AM CDT Office Visit [facility] - Vascular Surgery [address] [facility] [place] [address] Glen Fischer MD [address] [facility] [address] [place] [phone] 07/06/2025 2:00 PM CDT Appointment [facility] [place] [phone] Sabino Cespedes MD [address] [facility] DIV OF PULMONARY/[place] [address] 07/06/2025 3:00 PM CDT Appointment [facility] [place] [address] Sabino Cespedes MD [address] [facility] [address]L DIV OF PULMONARY/[place] [address] Health Maintenance Due Date Last Done Comments BONE DENSITY TESTING 1955 COLOGUARD (AGES 45-75) - COLON CA SCREENING 1956 COLON MONITORING 1956 COLONOSCOPY - COLON CA SCREENING 1956 CT COLONOGRAPHY - COLON CA SCREENING 1955 Colorectal Cancer Screening 1956 FIT - COLON CA SCREENING 1956 FLEX SIG - COLON CA SCREENING 1956 LIPID TESTING 1956 HEPATITIS C SCREENING 01/20/1974 DTAP/TDAP/TD VACCINES (1 - Tdap) 01/24/1975 LUNG CANCER SCREENING 01/24/2006 ZOSTER VACCINE (1 of 2) 01/24/2006 Respiratory Syncytial Virus (RSV) Vaccine Pt: or over 60 yrs (1 - Risk 60-74 years 1-dose series) 2016 PNEUMOCOCCAL VACCINE 50+ (2 of 2 - PPSV23, PCV20, or PCV21) 04/29/2021 03/04/2021 MAMMOGRAM 03/14/2023 03/14/2021, 03/14/2021 COVID-19 VACCINE ( - season) 2024 02/17/2021, 01/27/2021, 02/18/2012 DEPRESSION SCREENING 11/15/2024 MEDICARE AWV CALENDAR YEAR 2024 INFLUENZA VACCINE (#1) 2025 2, 09/29/2021, 09/03/2021, Additional history exists SCREENING FOR DIABETES 05/27/2028 5, 05/26/2025, 05/25/2025, Additional history exists HEPATITIS B VACCINE Aged Out No longe r eligible based on patient's age to complete this topic HIB VACCINE Aged Out No longer eligi ble based on patient's age to complete this topic HPV VACCINE Aged Out No longer eligi ble based on patient's age to complete this topic MENINGOCOCCAL (Group B) VACCINE SHARED DECISION-MAKING Aged Out No longer eligible based on patient's age to complete this topic MENINGOCOCCAL GROUPS A/C/Y/W VACCINE Aged Out No longer eligible based on patient's age to complete this topic Medical Devices Implanted Type Area Fern Cutter Device Identifier Shelf Expiration Date Model / Serial / Lot Patch Cv 8x.8cm Photofix Decellularized Implanted:Qty: 1 on 04/14/2024 by Glen Fischer MD at [facility] Right: Aorta [employer] 09/11/2025 PFP0.8X8 / / [id number] [facility] Art Ilium 10cm 7 - [id number] Implanted:Qty: 1 on 04/14/2024 by Glen Fischer MD at [facility] Right: Aorta [employer] 08/09/2025 [id number] / [id number] / Patch Cv 8x.8cm Photofix Decellularized Implanted:Qty: 1 on 04/14/2024 by Glen Fischer MD at [facility] Right: Aorta [employer] 10/13/2025 PFP0.8X8 / / [id number] Graft Vasc 6mm 80cm 60cm Hep Propaten - [id number] Implanted:Qty: 1 on 05/22/2025 by Mckinley Tripathi MD at [facility] [employer] 03/10/2027 [id number] / [id number] / Description:Femoral-Femoral Bypass Procedures Procedure Name Priority Date/Time Associated Diagnosis Comments RETIC COUNT AM Draw 05/27/2025 5:44 AM CDT IRON + TRANSFERRIN PANEL Routine 05/27/2025 5:44 AM CDT VITAMIN B12 AM Draw 05/27/2025 5:44 AM CDT FOLATE Routine 05/27/2025 5:44 AM CDT FERRITIN Routine 05/27/2025 5:44 AM CDT MAGNESIUM BLOOD Routine 05/27/2025 5:44 AM CDT RENAL FUNCTION PANEL Routine 05/27/2025 5:44 AM CDT CBC W/O DIFFERENTIAL Routine 05/27/2025 5:44 AM CDT HGB HCT PANEL NAZANIN 05/26/2025 1:27 PM CDT TRANSFUSE RED BLOOD CELL LEUKOREDUCED UNIT(S) Routine 05/26/2025 6:34 AM CDT PREPARE RBC LEUKOREDUCED UNIT Routine 05/26/2025 3:27 AM CDT TYPE + SCREEN PANEL STAT 05/26/2025 3 :27 AM CDT MAGNESIUM BLOOD Routine 05/26/2025 3:27 AM CDT RENAL FUNCTION PANEL Routine 05/26/2025 3:27 AM CDT CBC W/O DIFFERENTIAL Routine 05/26/2025 3:27 AM CDT VANCOMYCIN LEVEL TROUGH Timed 05/25/2025 3:29 AM CDT PT-INR [facility] Routine 05/25/2025 3:29 AM CDT MAGNESIUM BLOOD Timed 05/25/2025 3:29 AM CDT PHOSPHORUS BLOOD Timed 05/25/2025 3:29 AM CDT BASIC METABOLIC PANEL (CALCIUM TOTAL) Timed 05/25/2025 3:29 AM CDT CBC W AUTO DIFFERENTIAL Timed 05/25/2025 3:29 AM CDT PTT [facility] Timed 05/25/2025 3:29 AM CDT VANCOMYCIN LEVEL RANDOM Routine 05/24/2025 9:46 AM CDT PTT [facility] Routine 05/24/2025 4:07 AM CDT PT-INR [facility] Routine 05/24/2025 4:07 AM CDT CALCIUM IONIZED WHOLE BLOOD Timed 05/24/2025 12:14 AM CDT MAGNESIUM BLOOD Timed 05/24/2025 12:14 AM CDT PHOSPHORUS BLOOD Timed 05/24/2025 12:1 4 AM CDT BASIC METABOLIC PANEL (CALCIUM TOTAL) Timed 05/24/2025 12:14 AM CDT CBC W AUTO DIFFERENTIAL Timed 05/24/2025 12:14 AM CDT PTT [facility] Routine 05/23/2025 3:59 AM CDT PT-INR [facility] Routine 05/23/2025 3:59 AM CDT CALCIUM IONIZED WHOLE BLOOD Timed 05/22/2025 11:42 PM CDT MAGNESIUM BLOOD Timed 05/22/2025 11:42 PM CDT PHOSPHORUS BLOOD Timed 05/22/2025 11:4 2 PM CDT BASIC METABOLIC PANEL (CALCIUM TOTAL) Timed 05/22/2025 11:42 PM CDT CBC W AUTO DIFFERENTIAL Timed 05/22/2025 11:42 PM CDT FL MIRTA W ANGIO TEAM Routine 05/22/2025 3:39 PM CDT Right leg swelling ACT LR - POCT ([facility]) Routine 05/22/2025 3:23 PM CDT ACT LR - POCT ([facility]) Routine 05/22/2025 3:01 PM CDT ACT LR - POCT ([facility]) Routine 05/22/2025 2:34 PM CDT PATHOLOGY TISSUE Routine 05/22/2025 2:01 PM CDT Limb ischemia ACT LR - POCT ([facility]) Routine 05/22/2025 1:54 PM CDT ARTERIAL LINE NOTE Routine 05/22/2025 1: 32 PM CDT ACT LR - POCT ([facility]) Routine 05/22/2025 1:19 PM CDT ACT LR - POCT ([facility]) Routine 05/22/2025 12:41 PM CDT ENDOTRACHEAL TUBE NOTE Routine 12:40 PM CDT BLOOD GAS+COOX+LYTES+METAB ARTERIAL POCT Routine 05/22/2025 12:12 PM CDT BLOOD GAS+COOX+LYTES+METAB ARTERIAL POCT Routine 05/22/2025 12:12 PM CDT ACT LR - POCT ([facility]) Routine 05/22/2025 12:08 PM CDT VA TEAEC W/GRAFT SUPERFICIAL FEMORAL ART 05/22/2025 11:05 AM CDT Limb ischemia PREPARE RBC LEUKOREDUCED UNIT Routine 05/22/2025 9:21 AM CDT PREPARE RBC LEUKOREDUCED UNIT Routine 05/22/2025 9:21 AM CDT PREPARE RBC LEUKOREDUCED UNIT Routine 05/22/2025 9:21 AM CDT Acute lower limb ischemia TYPE + SCREEN PANEL STAT 05/22/2025 9 :21 AM CDT PTT [facility] STAT 05/22/2025 5:18 AM CDT PT-INR [facility] STAT 05/22/2025 5:18 AM CDT CBC W AUTO DIFFERENTIAL STAT 05/22/2025 5:[address] ANGIO LOWER EXTREMITY RIGHT STAT 05/22/2025 3:23 AM CDT Right leg swelling Right leg pain COMPREHENSIVE METABOLIC PANEL STAT 05/21/2025 4:37 PM CDT CBC W AUTO DIFFERENTIAL STAT 05/21/2025 4:37 PM CDT ERYTHROCYTE SEDIMENTATION RATE STAT 05/21/2025 4:37 PM CDT C-REACTIVE PROTEIN NAZANIN 05/21/2025 4: 37 PM CDT from Last 3 Months Results * (ABNORMAL) RETIC COUNT (05/27/2025 5:44 AM CDT) Reticulocyte Percent 2.56(H) 0.50 - 2.40 % 05/27/2025 6:20 AM CDT [facility] Reticulocyte Absolute 0.0748 0.0200 - 0.1100 x10E6/uL 05/27/2025 6:20 AM CDT [facility] Ret-HE 25.4(L) 29.0 - 37.9 pg 05/27/2025 6:20 AM CDT [facility] Immature Reticulocyte Fraction 44.5(H) 1.8 - 15.2 % 05/27/2025 6:20 AM CDT [facility] Blood BLOOD SPECIMEN / Unknown Venipuncture / Unknown 05/27/2025 5:44 AM CDT 05/27/2025 6:05 AM CDT us Dave Koroma MD LAB - HEMATOLOGY ORDERABLE S Final Result [facility] [address] [place] [address], [facility] [phone] * (ABNORMAL) CBC W/O DIFFERENTIAL (05/27/2025 5:44 AM CDT) Only the most recent of2 resultswithin the time period is included. WBC 5.4 4.0 - 10.7 x10E9/L 05/27/2025 6:20 AM CDT [facility] RBC Count 2.92(L) 3.90 - 5.20 x10E12/L 05/27/2025 6:20 AM CDT [facility] Hemoglobin 7.6(L) 11.9 - 15.8 g/dL 05/27/2025 6:20 AM CDT [facility] Hematocrit 24.3(L) 34.8 - 46.1 % 05/27/2025 6:20 AM [facility] MCV 83.2 80.0 - 98.0 fL 05/27/2025 6:20 AM [facility] MCH 26.0(L) 26.7 - 33.6 pg 05/27/2025 6:20 AM [facility] MCHC 31.3(L) 31.7 - 36.3 g/dL 05/27/2025 6:20 AM [facility] RDW-CV 18.6(H) 11.3 - 14.8 % 05/27/2025 6:20 AM [facility] Platelet Count 258 150 - 420 x10E9/L 05/27/2025 6:20 AM [facility] MPV 8.9 7.8 - 11.4 fL 05/27/2025 6:20 AM [facility] Blood BLOOD SPECIMEN / Unknown Venipuncture / Unknown 05/27/2025 5:44 AM CDT 05/27/2025 6:05 AM CDT us Joya Burrell MD LAB - HEMATOLOGY ORDERABLES F inal Result [facility] [address] [place] [address], [facility] [phone] * (ABNORMAL) RENAL FUNCTION PANEL (05/27/2025 5:44 AM CDT) Only the most recent of2 resultswithin the time period is included. BUN 20 7 - 26 mg/dL 05/27/2025 6:34 AM [facility] Creatinine 0.93 0.56 - 0.96 mg/dL 05/27/2025 6:34 AM [facility] Sodium 137 136 - 145 mmol/L 05/27/2025 6:34 AM [facility] Potassium 4.8(H) 3.5 - 4.5 mmol/L 05/27/2025 6:34 AM [facility] Chloride 103 98 - 107 mmol/L 05/27/2025 6:34 AM [facility] CO2 31(H) 22 - 29 mmol/L 05/27/2025 6:34 AM [facility] Glucose 125(H) 70 - 99 mg/dL 05/27/2025 6:34 AM [facility] Albumin 1.9(L) 3.4 - 5.0 g/dL 05/27/2025 6:34 AM [facility] Calcium 8.8 8.4 - 10.2 mg/dL 05/27/2025 6:34 AM [facility] Phosphorus 3.6 2.9 - 5.1 mg/dL 05/27/2025 6:34 AM [facility] Anion Gap 3(L) 6 - 16 05/27/2025 6:34 AM [facility] BUN/Creatinine Ratio 22 7 - 23 05/27/2025 6:34 AM [facility] Osmolality Calculated 288 275 - 295 mOsm/kg 05/27/2025 6:34 AM [facility] eGFR by CKD-EPI 67(L) >=90 mL/min/1.7 3 m2 05/27/2025 6:34 AM [facility] Comment:Estimated Glomerular Filtration Rate (eGFR) calculated using the CKD-EPI Creatinine Equation (2020), per the National Kidney Foundation and [place] [employer] Neph[employer] recommendations. Blood BLOOD SPECIMEN / Unknown Venipuncture / Unknown 05/27/2025 5:44 AM CDT 05/27/2025 6:05 AM CDT us Joya Burrell MD LAB - CHEMISTRY ORDERABLES nal Result [facility] [address] [place] [address], [facility] [phone] * MAGNESIUM BLOOD (05/27/2025 5:44 AM CDT) Only the most recent of5 resultswithin the time period is included. Magnesium 1.8 1.6 - 2.6 mg/dL 05/27/2025 6:34 AM [facility] Blood BLOOD SPECIMEN / Unknown Venipuncture / Unknown 05/27/2025 5:44 AM CDT 05/27/2025 6:05 AM CDT us Joya Burrell MD LAB - CHEMISTRY ORDERABLES Fi nal Result Performing Organization Address City/[facility]/ZIP Co de Phone Number [address] [address], [place] [phone] * FOLATE (05/27/2025 5:44 AM CDT) Folate 12.5 7.0 - 31.4 ng/mL 05/27/2025 7:06 AM CDT [facility] Blood BLOOD SPECIMEN / Unknown Venipuncture / Unknown 05/27/2025 5:44 AM CDT 05/27/2025 6:05 AM CDT us Dave Koroma MD LAB - CHEMISTRY ORDERABLES Final Result Performing Organization Address [facility]/ZIP Co de Phone Number [address] [address], [place] [phone] * (ABNORMAL) VITAMIN B12 (05/27/2025 5:44 AM CDT) Vitamin B12 212(L) 213 - 816 pg/mL 05/27/2025 7:06 AM CDT [facility] Blood BLOOD SPECIMEN / Unknown Venipuncture / Unknown 05/27/2025 5:44 AM CDT 05/27/2025 6:05 AM CDT us Dave Koroma MD LAB - CHEMISTRY ORDERABLES Final Result Performing Organization Address City/[facility]/ZIP Co de Phone Number [address] [address], [place] [phone] * (ABNORMAL) IRON + TRANSFERRIN PANEL (05/27/2025 5:44 AM CDT) Iron 19(L) 40 - 150 ug/dL 05/27/2025 6:54 AM CDT [facility] Transferrin 122(L) 174 - 382 mg/dL 05/27/2025 6:54 AM CDT [facility] Transferrin Saturation % 12(L) 16 - 50 % 05/27/2025 6:54 AM CDT [facility] TIBC Calculated 153(L) 240 - 450 ug/dL 05/27/2025 6:54 AM CDT [facility] Blood BLOOD SPECIMEN / Unknown Venipuncture / Unknown 05/27/2025 5:44 AM CDT 05/27/2025 5:59 AM CDT Dave Koroma MD LAB - CHEMISTRY ORDERABLES Final Result [address] [address], [facility] [phone] * FERRITIN (05/27/2025 5:44 AM CDT) Ferritin 86 13 - 204 ng/mL 05/27/2025 7:11 AM CDT [facility] Blood BLOOD SPECIMEN / Unknown Venipuncture / Unknown 05/27/2025 5:44 AM CDT 05/27/2025 5:59 AM CDT Dave Koroma MD LAB - CHEMISTRY ORDERABLES Final Result [address] [address], [place] [phone] * (ABNORMAL) HGB HCT PANEL (05/26/2025 1:27 PM CDT) Hemoglobin 8.0(L) 11.9 - 15.8 g/dL 05/26/2025 1:38 PM CDT [facility] Hematocrit 24.8(L) 34.8 - 46.1 % 05/26/2025 1:38 PM CDT [facility] Blood BLOOD SPECIMEN / Unknown Clinic Draw / Unknown 05/26/2025 1:27 PM CDT 05/26/2025 1:33 PM CDT Dave Koroma MD LAB - HEMATOLOGY ORDERABLE S Final Result [facility] [address] [place] [address], [facility] [phone] * TRANSFUSE RED BLOOD CELL LEUKOREDUCED UNIT(S) (05/26/2025 9:23 AM CDT) Perez Quesada MD NURSING - BLOOD PROD TRANSFU RAF Final Result * PREPARE (CROSSMATCH) RBC UNIT(S), 1 Units (05/26/2025 3:27 AM CDT) Only the most recent of4 resultswithin the time period is included. Unit Description AS1 LR PRBC [facility] Unit ABO O [facility] Unit Rh POS [facility] Product Number R02 [facility] Unit Donor # [id number] [facility] Unit Status transfused [facility] Product Code [id number] [facility] Blood Type Barcode 5100 [facility] Expiration Date [id number] [facility] Blood Bank BLOOD SPECIMEN / Unknown 05/26/2025 3:27 AM CDT 05/26/2025 3:45 AM CDT Perez Quesada MD LAB - BLOOD BANK ORDERABLES Final Result Performing Organization Address City/[facility]/ZIP Co de Phone Number [facility] [address] [place] [address], [facility] [phone] * TYPE + SCREEN PANEL (05/26/2025 3:27 AM CDT) Only the most recent of2 resultswithin the time period is included. Antibody Screen NEG 4:28 AM CDT [facility] ABO Rh O POS 05/26/2025 4:28 AM CDT [facility] Blood Bank BLOOD SPECIMEN / Unknown Venipuncture / Unknown 05/26/2025 3:27 AM CDT 05/26/2025 3:45 AM CDT Mckinley Tripathi MD LAB - BLOOD BANK ORDERABLES Final Result Performing Organization Address City/[facility]/ZIP Co de Phone Number [facility] [address] [place] [address], [place] [phone] * PTT [facility] (05/25/2025 3:29 AM CDT) Only the most recent of4 resultswithin the time period is included. APTT 37.5 23.0 - 38.4 Seconds 05/25/2025 4:01 AM T [facility] Comment:Suggested therapeuti c range for full dose I.V. unfractionated heparin therapy for venous thromboembolism is 71 to 109 seconds. Blood BLOOD SPECIMEN / Unknown Venipuncture / Unknown 05/25/2025 3:29 AM CDT 05/25/2025 3:35 AM CDT Result [facility] Ry Kong MD LAB - COAGULATION ORDERABLES Final Result Performing Organization Address [facility] Co de Phone Number [facility] [address] [place] [address], [place] [phone] * PT-INR [facility] (05/25/2025 3:29 AM CDT) Only the most recent of4 resultswithin the time period is included. PT 14.5 12.1 - 14.8 Seconds 05/25/2025 4:01 AM T [facility] INR 1.2 See Comment 05/25/2025 4:01 AM T [facility] Comment:The suggested therap eutic range for standard coumadin (warfarin) therapy is an INR of 2.0-3.0. For high-risk patients (Mechanical Mitral Valve Prosthesis, etc.), the suggested prophylactic therapeutic range is an INR of 2.5-3.5. Blood BLOOD SPECIMEN / Unknown Venipuncture / Unknown 05/25/2025 3:29 AM CDT 05/25/2025 3:35 AM CDT Result [facility] Ry Kong MD LAB - COAGULATION ORDERABLES Final Result [facility] [address] [place] [address], [facility] [phone] * (ABNORMAL) CBC W AUTO DIFFERENTIAL (05/25/2025 3:29 AM T) Only the most recent of5 resultswithin the time period is included. WBC 5.6 4.0 - 10.7 x10E9/L 05/25/2025 3:46 AM [facility] RBC Count 2.76(L) 3.90 - 5.20 x10E12/L 05/25/2025 3:46 AM [facility] Hemoglobin 7.4(L) 11.9 - 15.8 g/dL 05/25/2025 3:46 AM [facility] Hematocrit 22.4(L) 34.8 - 46.1 % 05/25/2025 3:46 AM [facility] MCV 81.2 80.0 - 98.0 fL 05/25/2025 3:46 AM [facility] MCH 26.8 26.7 - 33.6 pg 05/25/2025 3:46 AM [facility] MCHC 33.0 31.7 - 36.3 g/dL 05/25/2025 3:46 AM [facility] RDW-CV 19.4(H) 11.3 - 14.8 % 05/25/2025 3:46 AM [facility] Platelet Count 218 150 - 420 x10E9/L 05/25/2025 3:46 AM [facility] MPV 8.5 7.8 - 11.4 fL 05/25/2025 3:46 AM [facility] Neutrophil % 61.6 41.0 - 74.0 % 05/25/2025 3:46 AM [facility] Lymphocyte % 22.2 17.0 - 47.0 % 05/25/2025 3:46 AM [facility] Monocyte % 13.8(H) 3.0 - 11.0 % 05/25/2025 3:46 AM [facility] Eosinophil % 1.3 0.0 - 7.0 % 05/25/2025 3:46 AM T [facility] Basophil % 0.4 0.0 - 1.6 % 05/25/2025 3:46 AM [facility] Immature Granulocytes % 0.7 0.0 - 1.0 % 05/25/2025 3:46 AM [facility] Neutrophil Absolute 3.44 1.60 - 7.50 x10E9/L 05/25/2025 3:46 AM [facility] Lymphocyte Absolute 1.24 1.00 - 4.40 x10E9/L 05/25/2025 3:46 AM [facility] Monocyte Absolute 0.77 0.15 - 1.00 x10E9/L 05/25/2025 3:46 AM [facility] Eosinophil Absolute 0.07 0.00 - 0.60 x10E9/L 05/25/2025 3:46 AM [facility] Basophil Absolute 0.02 0.00 - 0.13 x10E9/L 05/25/2025 3:46 AM [facility] Blood BLOOD SPECIMEN / Unknown Venipuncture / Unknown 05/25/2025 3:29 AM CDT 05/25/2025 3:35 AM CDT Mckinley Tripathi MD LAB - HEMATOLOGY ORDERABLES Final Result [facility] [address] [place] [address], [facility] [phone] * (ABNORMAL) BASIC METABOLIC PANEL (CALCIUM TOTAL) (05/25/2025 3:29 AM CDT) Only the most recent of3 resultswithin the time period is included. BUN 14 7 - 26 mg/dL 05/25/2025 4:03 AM [facility] Creatinine 0.99(H) 0.56 - 0.96 mg/dL 05/25/2025 4:03 AM [facility] Sodium 134(L) 136 - 145 mmol/L 05/25/2025 4:03 AM [facility] Potassium 4.2 3.5 - 4.5 mmol/L 05/25/2025 4:03 AM [facility] Chloride 102 98 - 107 mmol/L 05/25/2025 4:03 AM [facility] CO2 28 22 - 29 mmol/L 05/25/2025 4:03 AM [facility] Glucose 124(H) 70 - 99 mg/dL 05/25/2025 4:03 AM [facility] Calcium 8.3(L) 8.4 - 10.2 mg/dL 05/25/2025 4:03 AM [facility] Anion Gap 4(L) 6 - 16 05/25/2025 4:03 AM [facility] BUN/Creatinine Ratio 14 7 - 23 05/25/2025 4:03 AM [facility] Osmolality Calculated 280 275 - 295 mOsm/kg 05/25/2025 4:03 AM [facility] eGFR by CKD-EPI 62(L) >=90 mL/min/1.7 3 m2 05/25/2025 4:03 AM [facility] Comment:Estimated Glomerular Filtration Rate (eGFR) calculated using the CKD-EPI Creatinine Equation (2020), per the National Kidney Foundation and [place] [employer] Nephrology recommendations. Blood BLOOD SPECIMEN / Unknown Venipuncture / Unknown 05/25/2025 3:29 AM CDT 05/25/2025 3:35 AM CDT Mckinley Tripathi MD LAB - CHEMISTRY ORDERABLES Final Result [facility] [address] [place] [address], [facility] [phone] * PHOSPHORUS BLOOD (05/25/2025 3:29 AM CDT) Only the most recent of3 resultswithin the time period is included. Phosphorus 3.4 2.9 - 5.1 mg/dL 05/25/2025 4:03 AM [facility] Blood BLOOD SPECIMEN / Unknown Venipuncture / Unknown 05/25/2025 3:29 AM CDT 05/25/2025 3:35 AM CDT Mckinley Tripathi MD LAB - CHEMISTRY ORDERABLES Final Result Performing Organization Address City/[facility]/ZIP Co de Phone Number [address] [address], [facility] [phone] * VANCOMYCIN LEVEL TROUGH (05/25/2025 3:29 AM CDT) [facility] Vancomycin Trough 12.0 10.0 - 20.0 ug/mL 05/25/2025 4:19 AM CDT [facility] Blood BLOOD SPECIMEN / Unknown Venipuncture / Unknown 05/25/2025 3:29 AM CDT 05/25/2025 4:09 AM CDT [facility] - 05/25/2025 4:19 AM CDT See institution protocol. Sabino Cespedes MD LAB - CHEMISTRY ORDERABLES Blanca l Result Performing Organization Address City/[facility]/ZIP Co de Phone Number [address] [address], [facility] [phone] * VANCOMYCIN LEVEL RANDOM (05/24/2025 9:46 AM CDT) [facility] Vancomycin Random 20.5 Therapeutic Ranges not established for random specimens ug/mL 05/24/2025 11:53 AM CDT [facility] Blood BLOOD SPECIMEN / Unknown Venipuncture / Unknown 05/24/2025 9:46 AM CDT 05/24/2025 9:57 AM CDT [facility] - 05/24/2025 11:53 AM CDT See institution protocol. Sabino Cespedes MD LAB - CHEMISTRY ORDERABLES Blanca l Result Performing Organization Address City/[facility]/ZIP Co de Phone Number [address] [address], [facility] [phone] * (ABNORMAL) CALCIUM IONIZED WHOLE BLOOD (05/24/2025 12:14 AM CDT) Only the most recent of2 resultswithin the time period is included. [facility] Calcium Ionized 1.26 mmol/L 05/24/2025 12:27 AM CDT [facility] pH 7.34(L) 7.35 - 7.45 pH 05/24/2025 12:27 AM CDT [facility] Ionized Calcium pH Adjusted 1.23 1.19 - 1.34 mmol/L 05/24/2025 12:27 AM CDT [facility] Blood BLOOD SPECIMEN / Unknown Venipuncture / Unknown 05/24/2025 12:14 AM CDT 05/24/2025 12:22 AM CDT us Mckinley Tripathi MD LAB - CHEMISTRY ORDERABLES Final Result [facility] [address] [place] [address], [facility] [phone] * [place] Mirta Albright Angio Team (05/22/2025 3:39 PM CDT) Narrative [facility] - 05/22/2025 3:40 PM CDT Fluoroscopy was used for this exam in the OR. Please see the Operative report. us Mckinley Tripathi MD FLUOROSCOPY ORDERABLES Blanca l Result Performing Organization Address City/[facility]/ZIP Co de Phone Number [facility] * ACT LR - POCT ([facility]) (05/22/2025 3:23 PM CDT) Only the most recent of7 resultswithin the time period is included. [facility] ACT LR 148 See result comments sec 05/23/2025 7:33 AM CDT [facility] Blood BLOOD SPECIMEN / Unknown 05/22/2025 3:23 PM CDT 05/23/2025 7:33 AM CDT Narrative [facility] - 05/23/2025 7:33 AM CDT ACT-LR Therapeutics ranges are: Cardiac cath lab = 200-300 seconds Sheath pull = ACT less than 170 seconds EPS lab = 200-240 seconds Sheath pull = ACT less than 140 seconds Radiology : CT/Angio lab = 200-300 seconds Sheath pull = ACT less than 200 seconds Expected range of normal volunteers: ACT-LR = 113-149 seconds Expected range of a Non-heparin patients: ACT-LR = 89-169 seconds From established ranges from the company manual us Mckinley Tripathi MD LAB - COAGULATION ORDERABLE S Final Result [facility] [address] [place] [address], [facility] [phone] * PATHOLOGY TISSUE (05/22/2025 2:01 PM CDT) Case Report Surgical Pathology Report Case: [id number] Authorizing Provider: Mckinley Tripathi MD Collected: 05/22/2025 02:01 PM Ordering Location: [facility] Received: 05/23/2025 04:26 AM Pathologist: Katarina Padilla MD Specimen: Groin Lymph Node, RIGHT GROIN LYMPH NODE 05/24/2025 11:48 AM CDT [facility] Final Diagnosis Lymph node, right groin, excision (A): - Benign lymph node with focal nonnecrotizing granuloma 05/24/2025 11:48 AM CDT [facility] at 1148 CDT Microscopic Description and Comment Microscopic examination substantiates the final diagnosis. 05/24/2025 11:48 AM CDT [facility] Clinical History The patient is a 70-year-old woman with a PMH of PAD, COPD, HTN, QUYEN, & HFpEF who was admitted for right leg pain and was found to have an occluded right iliac, occluded distal right external iliac artery. Underwent embolectomy of right iliofemoral artery with left to right femoral bypass. 05/24/2025 11:48 AM CDT [facility] Gross Description The requisition and specimen(s) are identified with the patient's name, Mckinley Rashid. Received in formalin, specimen A, is a single wong-pink focally disrupted lymph node 1.8 x 1.1 x 0.9 cm. The cut surfaces are wong-white to wong-pink and smooth. The node is serially sectioned and entirely submitted in cassette [id number]. IKD 05/24/2025 11:48 AM CDT [facility] Pathologist Location at [facility] 05/24/2025 11:48 AM CDT [facility] Disclaimer The performance characteristics of all immunohistochemical and indirect immunofluorescence stains (if any) cited in this report were determined by the Histopathology Laboratory of [facility]. Some of these tests were developed by our own laboratory and have not been cleared or approved by the US Food and Drug Administration. The FDA does not require this test to go through premarket FDA review. These tests are used for clinical purposes. They should not be regarded as investigational or for research. This laboratory is certified under the Clinical Laboratory Improvement Amendments (CLIA) as qualified to perform high complexity clinical laboratory testing. This case has been personally reviewed and interpreted by the attending (teaching) pathologist. 05/24/2025 11:48 AM CDT [facility] Embedded Images 05/24/2025 11:48 AM CDT [facility] Biopsy, NOS LYMPH NODE SPECIMEN / Unknown 05/22/2025 2:01 PM CDT 05/23/2025 4:26 AM CDT Comment:Pre-op diagnosis: Limb ischemia [I99.8] Mckinley Tripathi MD LAB - PATHOLOGY/CYTOLOGY OR DERABLES Final Result Performing Organization Address City/State/[facility] Co de Phone Number [facility] [address] [place] [address], [facility] [phone] * ARTERIAL LINE PERFORMABLE (05/22/2025 1:32 PM CDT) Narrative Damir Werner DO - 05/22/2025 1:32 PM CDT Damir Werner DO 05/22/2025 2:28 PM Arterial Line Placement Procedure Note Patient Location: OR. Insertion Time: 05/22/2025 11:55 AM Procedure: Arterial Line (71425) Procedure Section Indications: continuous blood pressure monitoring and blood sampling needed. Consent: informed consent was obtained for the procedure. Alternatives Discussed: alternative treatment Skin Prep: Chloraprep. Orientation: Right. Site: radial. Sterile Technique: cap, mask and sterile gloves. Gauge: 20. Seldinger Technique Used? Yes Number of Attempts: 3. Line Secured with: Tegaderm and tape. Procedure Tolerance: tolerated well, performed while patient under general anesthesia and no immediate complications. Events: none. Local Anesthetic Used? No Staff Section Anesthesia Provider: Kemi Duval MD, Performed the procedure Kemi Duval MD GENERAL ANESTHESIA ORDERABLES Final Result * ETT LINE PERFORMABLE (05/22/2025 12:40 PM CDT) Narrative Damir Werner DO - 05/22/2025 12:40 PM CDT Damir Werner DO 05/22/2025 12:41 PM Endotracheal Tube Placement: Patient Location: OR. Intubation Event Date/Time: 05/22/2025 11:38 AM Procedure: intubation ([id number]) Procedure Section: Sedation: under general anesthesia. Indications for Airway Management: anesthesia Procedure pretreatments used? No Induction: standard IV Patient Position: sniffing Mask Ventilation: easy. Blade Type: Suzy Blade Size: 3 Laryngoscopy View: grade 1 (full cords) Intubation Adjuncts: stylet Tube: endotracheal tube Placement: oral Tube type: cuff - inflated Tube Size (MM): 7 Depth of Insertion (CM): 21 Measured From: teeth Cuff volume (mL): 7 Cuff Inflated With: air Number of Attempts: 1. Placement Verified By: direct visualization, bilateral breath sounds, CO2 monitor and chest auscultation Tube secured with: adhesive tape. Dentition unchanged? Yes Difficult Airway? No. Procedure Start Time: 05/22/2025 11:38 AM. Staff Section Anesthesia Provider: Damir Werner DO, Performed the procedure Provider #1: Kemi Duval MD. Kemi Duval MD GENERAL ANESTHESIA ORDERABLES Final Result * (ABNORMAL) BLOOD GAS+COOX+LYTES+METAB ARTERIAL POCT (05/22/2025 12:12 PM CDT) Only the most recent of2 resultswithin the time period is included. pH Arterial 7.41 7.35 - 7.45 pH 05/22/2025 12:12 PM CDT [facility] pO2 Arterial 249(H) 80 - 100 mmHg 05/22/2025 12:12 PM CDT [facility] pCO2 Arterial 43 35 - 45 mmHg 12:12 PM [facility] HCO3 Arterial 27.3 20.0 - 30.0 mmol/L 05/22/2025 12:12 PM [facility] BE Arterial 2.4(H) -2.0 - 2.0 mmol/L 05/22/2025 12:12 PM [facility] Oxyhemoglobin Arterial 96.9 % 05/22/2025 12:12 PM [facility] Dexoyhemoglobin (HHB) % <1.0 % 05/22/2025 12:12 PM [facility] Methemoglobin 1.3 0.0 - 2.0 % 05/22/2025 12:12 PM [facility] Carboxyhemoglobin 1.9 0.0 - 2.0 % 2024 12:12 PM [facility] Comment:Carboxyhemoglobin No rmal Concentration: Non-smokers: 0-2%; Smokers: 0- 9%; Toxic: >20% O2 Content Arterial 13.6 Interpret within clinical context ml/dL 05/22/2025 12:12 PM [facility] Hemoglobin by COOX 9.5(L) 12.0 - 15.6 g/dL 05/22/2025 12:12 PM [facility] O2 Saturation Arterial 100 90 - 100 % 05/22/2025 12:12 PM [facility] Sodium Whole Blood 134(L) 135 - 145 mmol/L 05/22/2025 12:12 PM [facility] Potassium Whole Blood 3.9 3.5 - 5.5 mmol/L 05/22/2025 12:12 PM [facility] Chloride WB 103 78 - 107 mmol/L 05/22/2025 12:12 PM [facility] Calcium Ionized 1.16 mmol/L 12:12 PM [facility] Ionized Calcium pH Adjusted 1.16(L) 1.19 - 1.34 mmol/L 05/22/2025 12:12 PM [facility] Anion Gap (AG) Arterial 4(L) 6 - 16 mmol/L 05/22/2025 12:12 PM [facility] Glucose WB 97 70 - 99 mg/dL 05/22/2025 12:12 PM CDT [facility] Lactic Acid Whole Blood 0.6 <=2.0 mmol/L 05/22/2025 12:12 PM CDT [facility] Blood, arterial ARTERIAL BLOOD SPECIMEN / Unknown 05/22/2025 12:12 PM CDT 05/22/2025 12:13 PM CDT Mckinley Tripathi MD LAB - POINT OF CARE ORDERAB LES Final Result [facility] [address] [place] [address], [facility] [phone] * CT Angio Lower Extremity Right (05/22/2025 3:23 AM CDT) Anatomical Region Laterality Modality Lower Extremity Computed Tomogra phy 05/22/2025 3:35 AM CDT Impressions 05/22/2025 4:47 AM CDT IMPRESSION: 1.Occluded right internal iliac artery. 2.Occluded distal right external iliac artery distal to the stent with reconstitution of flow in the right common femoral artery. 3.Patent without significant stenosis of anterior tibial and posterior tibial arteries. 4.Diffuse edema is noted in the right leg. Report dictated by Francisco Harmon MD, (Fire Protection Engineer). I, Bert Bonilla MD have personally reviewed and interpreted this examination/study. > Interpreting Provider: Bert Bonilla MD on 05/22/2025 4:47 AM Narrative 05/22/2025 4:47 AM CDT PROCEDURE: CT ANGIO LOWER EXTREMITY RIGHT DATE/TIME OF EXAM: 05/22/2025 3:34 AM CLINICAL INFORMATION: None relevant/not provided if blank. Indication: M79.89: Right leg swelling M79.604: Right leg pain COMPARISON: CT angiogram abdominal aorta with runoff 03/31/2024. TECHNIQUE: CT of the right lower extremity angiogram' was performed utilizing standard protocol. 3D reconstructions were performed on an independent workstation. CT dose reduction technique was used, including Automated Exposure Control. IV CONTRAST: IOPAMIDOL 76 % IV SOLN:100 mL FINDINGS: Right common iliac artery: Atherosclerotic with moderate multifocal stenoses. Right internal iliac artery: Occluded. Right external iliac artery: Stent is noted and it is patent. The artery is occluded distal to the stent and distally reconstituted. Right common femoral artery: Reconstitution of the right common femoral artery with fine caliber. Atherosclerotic. Right profunda femoris artery: Atherosclerotic but patent without significant focal stenosis. Right superficial femoral artery: Atherosclerotic but patent without significant focal stenosis. Right popliteal artery: Patent without significant focal stenosis. Right anterior tibial artery: Patent without significant focal stenosis proximally. Right tibioperoneal trunk: Patent without significant focal stenosis. Right posterior tibial artery: Patent without significant focal stenosis. This vessel crosses the ankle and supplies the plantar artery. Right peroneal artery: Fine caliber with distal occlusion. Lower extremity edema. The bones are diffusely demineralized. Intramedullary nailing of the right femur with multiple chronically displaced fracture fragments. Chronic appearing fractures of the left ischium and pubis. Procedure Note Bert Bonilla MD - 05/22/2025 PROCEDURE: CT ANGIO LOWER EXTREMITY RIGHT DATE/TIME OF EXAM: 05/22/2025 3:34 AM CLINICAL INFORMATION: None relevant/not provided if blank. Indication: M79.89: Right leg swelling M79.604: Right leg pain COMPARISON: CT angiogram abdominal aorta with runoff 03/31/2024. TECHNIQUE: CT of the right lower extremity angiogram' was performed utilizingstandard protocol. 3D reconstructions were performed on an independent workstation. CT dose reduction technique was used, including Automated ExposureControl. IV CONTRAST: IOPAMIDOL 76 % IV SOLN:100 mL FINDINGS: Right common iliac artery: Atherosclerotic with moderate multifocal stenoses. Right internal iliac artery: Occluded. Right external iliac artery: Stent is noted and it is patent. The arteryis occluded distal to the stent and distally reconstituted. Right common femoral artery: Reconstitution of the right common femoral artery with fine caliber. Atherosclerotic. Right profunda femoris artery: Atherosclerotic but patent without significant focal stenosis. Right superficial femoral artery: Atherosclerotic but patent without significant focal stenosis. Right popliteal artery: Patent without significant focal stenosis. Right anterior tibial artery: Patent without significant focal stenosis proximally. Right tibioperoneal trunk: Patent without significant focal stenosis. Right posterior tibial artery: Patent without significant focalstenosis. This vessel crosses the ankle and supplies the plantar artery. Right peroneal artery: Fine caliber with distal occlusion. Lower extremity edema. The bones are diffusely demineralized. Intramedullary nailing of the right femur with multiple chronically displaced fracture fragments. Chronic appearing fractures of the left ischium and pubis. IMPRESSION: 1.Occluded right internal iliac artery. 2.Occluded distal right external iliac artery distal to the stent with reconstitution of flow in the right common femoral artery. 3.Patent without significant stenosis of anterior tibial and posterior tibial arteries. 4.Diffuse edema is noted in the right leg. Report dictated by Francisco Harmon MD, (Fire Protection Engineer). I, Bert Bonilla MD have personally reviewed and interpreted this examination/study. > Interpreting Provider: Bert Bonilla MD on 05/22/2025 4:47AM Ry Kong MD CT ORDERABLES Final Result * (ABNORMAL) C-REACTIVE PROTEIN (05/21/2025 4:37 PM CDT) C-Reactive Protein 8.8(H) <=0.5 mg/dL 05/21/2025 5:12 PM CDT [facility] Blood BLOOD SPECIMEN / Unknown Venipuncture / Unknown 05/21/2025 4:37 PM CDT 05/21/2025 4:44 PM CDT Niurka Sheehan PA-C LAB - CHEMISTRY ORDERABLES Blanca l Result [facility] [address] [place] [address], [facility] [phone] * (ABNORMAL) ERYTHROCYTE SEDIMENTATION RATE (05/21/2025 4:37 PM CDT) Erythrocyte Sedimentation Rate Westergren >130(H) 0 - 30 MM/HR 05/21/2025 5:09 PM CDT [facility] Blood BLOOD SPECIMEN / Unknown Venipuncture / Unknown 05/21/2025 4:37 PM CDT 05/21/2025 4:44 PM CDT us Niurka Sheehan PA-C LAB - HEMATOLOGY ORDERABLES Fin al Result [facility] [address] [place] [address], [facility] [phone] * (ABNORMAL) COMPREHENSIVE METABOLIC PANEL (05/21/2025 4:37 PM CDT) BUN 14 7 - 26 mg/dL 05/21/2025 5:12 PM [facility] Creatinine 0.99(H) 0.56 - 0.96 mg/dL 05/21/2025 5:12 PM [facility] Sodium 137 136 - 145 mmol/L 05/21/2025 5:12 PM [facility] Potassium 4.2 3.5 - 4.5 mmol/L 05/21/2025 5:12 PM [facility] Chloride 105 98 - 107 mmol/L 05/21/2025 5:12 PM [facility] CO2 24 22 - 29 mmol/L 05/21/2025 5:12 PM [facility] Glucose 97 70 - 99 mg/dL 05/21/2025 5:12 PM [facility] Calcium 8.9 8.4 - 10.2 mg/dL 05/21/2025 5:12 PM [facility] Protein Total 7.6 6.0 - 8.3 g/dL 05/21/2025 5:12 PM [facility] Albumin 2.8(L) 3.4 - 5.0 g/dL 05/21/2025 5:12 PM [facility] Bilirubin Total 0.2 0.2 - 1.2 mg/dL 05/21/2025 5:12 PM [facility] Alkaline Phosphatase 122 40 - 150 U/L 05/21/2025 5:12 PM [facility] ALT 10 5 - 55 U/L 05/21/2025 5:12 PM [facility] AST 11 5 - 34 U/L 05/21/2025 5:12 PM [facility] Anion Gap 8 6 - 16 05/21/2025 5:12 PM T [facility] BUN/Creatinine Ratio 14 7 - 23 05/21/2025 5:12 PM T [facility] Osmolality Calculated 284 275 - 295 mOsm/kg 05/21/2025 5:12 PM [facility] Albumin/Globulin Ratio 0.6(L) 1.1 - 2.3 05/21/2025 5:12 PM [facility] eGFR by CKD-EPI 62(L) >=90 mL/min/1.7 3 m2 05/21/2025 5:12 PM [facility] Comment:Estimated Glomerular Filtration Rate (eGFR) calculated using the CKD-EPI Creatinine Equation (2020), per the National Kidney Foundation and [place] [employer]ph[employer] recommendations. Blood BLOOD SPECIMEN / Unknown Venipuncture / Unknown 05/21/2025 4:37 PM CDT 05/21/2025 4:44 PM CDT Niurka Sheehan PA-C LAB - CHEMISTRY ORDERABLES Blanca cornelius Result [facility] [address] [place] [address], [place] [phone] from Last 3 Months Insurance MEDICAID - OUT OF STATE [facility] [employer] MEDICARE DUAL ADV [place] Advance Directives * Full Code (Latest Code Status on File) Date Activated Date Inactivated Comments 05/22/2025 5:05 AM 05/27/2025 4:59 PM * Full Code Date Activated Date Inactivated Comments 04/14/2024 1:03 PM 04/16/2024 4:25 PM Care Teams Timber Cruiser Relationship Specialty Start Date End Date Keegan Merino MD [address] [place] [id number] PCP - General Family Medicine 04/12/24
--- OUTSIDE RECORDS SUMMARY | 2025-05-30 05:16 | XMS_ITS | Encounter Summary ---
Author Organization [facility] Address [address] [place] [address] Care Team Providers Care Round Kiln Drawer Name Role Phone Keegan Merino MD Primary Care Provider [phone] Reason for Visit * Reason Onset Date Comments Transitional Care 05/29/2025 Encounter Details Date Type Department Care Team (Late st Contact Info) Description 05/29/2025 Telephone Transitional Care at [address] [address] Berenice Benito, bobbin presser Social History Tobacco Use Types Packs/Day Years Used Date Smoking Tobacco: Former Cigarettes 0.5 50 1 12/16/1972 - 10/15/2023 Smokeless Tobacco: Never Alcohol Use Standard Drinks/Week Comments Not Asked [...] and heating? Not hard at all 05/22/2025 [facility] Occupat ional Health - Occupational Stress [...] any time in the past 12 m [facility], were you homeless or living in a [place] health care facility (including now)? No 05/22/2025 Comments No Sex and Gender Information Value Date Recorded Sex Assigned at Not on file Legal Sex Female 9:57 AM CDT Gender Identity Not on file Sexual Orientation Not on file documented as of this encounter Functional Status * Is person deaf or have serious hearing difficulty? Answer Date of Assessment Author No 05/22/2025 5:28 PM CDT Jerardo Gunter RN * Is person blind or have serious difficulty seeing? Answer Date of Assessment Author No 05/22/2025 5:28 PM OMAIRAT Jerardo Gunter RN * Does person have serious difficulty walking/climbing stairs? Answer Date of Assessment Author Yes 05/22/2025 5:28 PM OMAIRAT Jerardo Gunter RN * Does person have difficulty dressing/bathing? Answer Date of Assessment Author No 05/22/2025 5:28 PM OMAIRAT Jerardo Gunter RN * Does person have difficulty doing errands alone? Answer Date of Assessment Author No 05/22/2025 5:28 PM CDT Jerardo Gunter RN documented as of this encounter Mental Status * Does person have difficulty concentrating/remembering/making decisions? Answer Entry Date Author No 05/22/2025 5:28 PM CDT Jerardo Gunter RN documented in this encounter Miscellaneous Notes * Telephone Encounter - Berenice Benito RN - 05/29/2025 10:20 AM CDT RN 48 hour post discharge follow-up contact by telephone: Patient with recent IP discharge from [facility] on 05/27/25 . This RN contacted Clara by telephone [phone] to complete 48 hour post- discharge follow-up contact for [facility] appointment. 1) How are you feeling? Patient stated right leg is swollen and painful is applying ice. Advised ifworsens to call her PCP 2) How is your mobility? Able to move around but not well 3) New concerns or problems? no 4) Have you had to go the ER for any reason? no 5) Any questions about your discharge diagnosis and instructions? no 6) Do you have a follow up appointment made? Patient said she has an appointment with her PCP 06/13/25. Explained [facility] 7) Do you currently have home health, any questions about home care? no 8) Have you filled all of your RX's? yes 9) Any questions or concerns that we can help you with? no 10) Do you have transportation for this appointment? N/a Clara denied any questions related to diet, medications, or condition at this time. Patient wasencouraged to call this writer producer with questions, concerns, barriers to care, and/or additional resources if needed. Patient verbalized understanding and agreement with plan. This RN will continue to provide post- discharge monitoring until patient completes [facility] follow up. Call Duration: 10 min. Colton Benito RN, BSN Nurse Navigator, [facility] Office: [phone] 05/29/2025 documented in this encounter Plan of Treatment Upcoming Encounters Date Type Department Care Team (Late st Contact Info) Description 05/31/2025 10:15 AM CDT Office Visit [facility] - Vascular Surgery [address] [facility] [place] [address] Glen Fischer MD [address] [facility] [address] [place] [address] 07/06/2025 2:00 PM CDT Appointment [facility] [address] [place] [address] Sabino Cespedes MD [address] [facility] [address] DIV OF PULMONARY/[place] [address] 07/06/2025 3:00 PM CDT Appointment [facility] [address] [place] [address] Sabino Cespedes MD [address] [facility] [address] DIV OF PULMONARY/[place] [address] documented as of this encounter Visit Diagnoses Not on filedocumented in this encounter Care Teams Round Kiln Drawer Relationship Specialty Start Date End Date Keegan Merino MD [address] [place] [id number] PCP - General Family Medicine 04/12/24 documented as of this encounter
--- OUTSIDE RECORDS SUMMARY | 2025-05-30 05:16 | XMS_ITS | Clinical Summary ---
Author Organization [facility] Address [address] [place] [address] Care Team Providers Care Rotary Helper Name Role Phone Sammy uSazo MD Primary Care Provider [phone] Allergies Active Allergy Reactions Criticality Noted Date Comments Penicillins Swelling 10/21/2011 Medications alendronate 70 MG tablet Take 1 tablet (70 mg total) by mouth once a week. 05/21/20 20 Active cyclobenzaprine 10 MG tablet Take 1 tablet (10 mg total) by mouth nightly. at bedtime. 05/07/20 20 Active oxybutynin 5 MG tablet Take 1 tablet (5 mg total) by mouth nightly at bedtime. 05/30/20 20 Active traZODone 50 MG tablet Take 1 tablet (50 mg total) by mouth nightly at bedtime. at bedtime. 05/20/20 20 Active multivitamin tablet Take 1 tablet by mouth daily. Active calcium carb-cholecalcifer ol 600-400 MG-UNIT Tab tablet Take 1 tablet by mouth daily. Active albuterol sulfate HFA 108 (90 Base) MCG/ACT inhaler Inhale 2 puffs into the lungs every 4 (four) hours as needed. Active hypromellose 0.3 % ophthalmic gel Place 1 drop into both eyes 2 (two) times daily. Active HYDROcodone-acetam inophen 5-325 MG tabletIndications: Acute Pain < 7 Day Supply Take 1 tablet by mouth every 4 (four) hours as needed for Pain. Indications: Acute Pain < 7 Day Supply 15 tablet 04/21/20 22 Active fluticasone-salmet mayela 230-21 MCG/ACT inhaler Inhale 2 puffs into the lungs 2 (two) times daily. 12 g 1 05/24/20 22 Active BI-PAP DEVICE, DME,Indications:CO PD (chronic obstructive pulmonary disease) ([facility]) 1 Device by Does not apply route nightly at bedtime. IPAP 14 EPAP 7 6L oxygen bled in. Mask and Tubing. 1 Device 11/09/20 Active OXYGEN CONCENTRATOR SUPPLY, DME,Indications:CO PD (chronic obstructive pulmonary disease) ([facility]) 1 Device by Nasal route continuous. High Flow Nasal Cannula. 3L with rest, 6L with activity. Portable Tanks. High Liter Flow concentrator 1 Device 11/09/20 Active WALKER MISC, DME,Indications:CO PD (chronic obstructive pulmonary disease) ([facility]),Leg ulcer, right, with fat layer exposed ([facility]),Bilateral leg edema,Primary osteoarthritis of right knee,Loose, body, joint, knee, right 1 Device by Does not apply route as needed. Needs walker with basket. 1 Device 11/09/20 Active aspirin 81 MG chewable tablet Chew 1 tablet (81 mg total) by mouth daily. 30 tablet 11/10/20 Active Active Problems Problem Noted Date Diagnosed Date Iron deficiency anemia 03/13/2025 Iron deficiency anemia 03/13/2025 Anemia, unspecified 03/13/2025 COPD (chronic obstructive pu lmonary disease) ([facility]) 11/01/2023 Closed right hip fracture, i nitial encounter ([facility]) 04/18/2022 Venous insufficiency 02/11/2022 Bilateral leg edema 01/15/2022 Leg ulcer, right, with fat layer exposed ([facility]) 01/15/2022 PAD (peripheral artery disease) 01/15/2022 Tobacco abuse 01/15/2022 Acute respiratory failure ([facility]) 08/15 Non-healing wound of right lower extremity 07/15 Cellulitis 06/30/2021 Loose, body, joint, knee, right 04/10/2021 Appiah's cyst of knee, left 07/02/2020 Bone marrow edema 07/02/2020 Primary osteoarthritis of right knee 06/05/2020 Encounters Date Type Department Care Team Description 05/16/2025 1:48 PM CDT - 05/16/2025 6:15 PM CDT Emergency [facility] Emergency Room [address] [place] [id number] Byron Harris MD Rash Discharge Disposition: Home or Self Care (Routine Discharge) 05/16/2025 Travel 05/14/2025 12:37 PM CDT - 05/14/2025 11:59 PM CDT Hospital Encounter [facility] [address] [place] [address] Leigh Swanson MD Discharge Disposition: Home or Self Care (Routine Discharge) 05/14/2025 Travel 03/27/2025 1:45 PM CDT - 03/27/2025 2:42 PM CDT Hospital Encounter [facility] Surgery [address] [place] [id number] Sammy Suazo MD Discharge Disposition: Home or Self Care (Routine Discharge) 03/27/2025 Travel 03/20/2025 1:56 PM CDT - 03/20/2025 3:08 PM CDT Hospital Encounter [facility] Surgery [address] [place] [id number] Sammy Suazo MD Discharge Disposition: Home or Self Care (Routine Discharge) 03/20/2025 Travel 03/14/2025 Orders Only [facility] [address] [place] [address] Richard Talley MD 03/13/2025 Therapy Plan [facility] Day [facility] [address] [place] [id number] Sammy Suazo MD from Last 3 Months Immunizations Immunization Administration Dates Next Due Influenza Adult (Generic) 08/13/2020,08/17/2019 PFIZER COVID-19 (ORIGINAL FO RMULATION, PURPLE CAP) mRNA, LNP-S, PF, 30 MCG/0.3 ML DOSE 02/18/2012 Pneumococcal (Prevnar 13) 03/04/2021 Family History Medical History Relation Comments COPD Brother 1 Hypertension Brother 1 No Known Problems Brother 2 Hypertension Brother 3 MVA Brother 4 Diabetes Father Emphysema Father Heart Disease Father Hypertension Mother Thyroid Disease Mother COPD Sister 1 Heart Disease Sister 1 Hypertension Sister 1 Sleep Apnea Sister 1 oxygen dependent Sister 1 Hypertension Sister 2 Thyroid Disease Sister 2 Cancer Sister 3 Breast Cancer Neg Hx Relation Status Comments Brother 1 Alive Brother 2 Alive Brother 3 Alive Brother 4 Father Mother Sister 1 Alive Sister 2 Alive Sister 3 Social History Tobacco Use Types Packs/Day Years Used Date Smoking Tobacco: Every Day Cigarettes 1 48 Smokeless Tobacco: Former Tobacco Cessation:Ready to Q uit: No; Counseling Given: Yes Comments:10 a day Alcohol Use Standard Drinks/Week Comments Yes 0 (1 standard drink = 0.6 oz pur e alcohol) on special occasions [facility] Utilities Answer Date Recorded In the past 12 months has [facility] [employer], oil, or water [employer] threatened to shut off services in your [...] place to sleep or slept in a halfway (including now)? No 11/01/2023 Comments No Sex and Gender Information Value Date Recorded Sex Assigned at Female 05/14/2025 12:33 PM CDT Legal Sex Female 6:51 PM CDT Gender Identity Not on file Sexual Orientation Not on file Last Filed Vital Signs Vital Sign Reading Time Taken Comments Blood Pressure 120/57 05/16/2025 1:52 PM CDT Pulse 83 05/16/2025 1:52 PM CDT Temperature 37 C (98.6 F) 05/16/2025 1:52 PM CDT Respiratory Rate 20 05/16/2025 1:52 PM CDT Oxygen Saturation 93% 05/16/2025 1:52 PM CDT Inhaled Oxygen Concentration - - Weight 88.5 kg (195 lb) 05/16/2025 1:52 PM CDT Height 160 cm (5' 3) 05/16/2025 1:52 PM CDT Body Mass Index 34.54 05/16/2025 1:52 PM CDT Plan of Treatment Health Maintenance Due Date Last Done Comments ASCVD LDL 1956 ASCVD Statin 1955 Colorectal Cancer Screening Colonoscopy (10 Years) 1955 Hepatitis C 01/24/1974 DTaP, Tdap and Td Vaccines ( 1 - Tdap) 01/24/1975 Zoster Vaccines (1 of 2) 01/24/2006 RSV Immunization or 60+ Years (1 - Risk 60-74 years 1-dose series) 2016 Annual Medicare Wellness Visit 01/24/2021 Dexa Scan (General) 01/24/2021 Pneumococcal Vaccine: 50+ Years (2 of 2 - PPSV23) 04/29/2021 03/04/2021 Mammogram Screening 03/14/2023 03/14/2021 COVID-19 Vaccine (4 - 2023-2 5 season) 2024 02/17/2021, 01/27/2021, 02/18/2012 PHQ-2 (Physician Clio) 11/15/2024 Colorectal Cancer Screening FIT/FOBT (1 Year) Discontinued 05/18/2022 Meningococcal B Vaccine Aged Out No l onger eligible based on patient's age to complete this topic Meningococcal Vaccine Aged Out No ryan jerson eligible based on patient's age to complete this topic RSV Immunizations Under 20 Months Aged Out No longer eligible based on patient's age to complete this topic Goals Goal Patient Goal Type Associated Problems Recent Progress Patient-Stated? Author Health - patient able to perform ADLs independently General No Hermelinda Nichols, ENVELOPE FOLDING MACHINE OPERATOR Patient will return to prior living situation and remain independent in ADLs upon discharge from hospital General No Hermelinda Nichols, ENVELOPE FOLDING MACHINE OPERATOR Health - patient able to perform ADLs independently General No Ca Beyer RN Medical Devices Implanted Type Area [employer] Device Identifier Shelf Expiration Date Model / Serial / Lot Nail 10mm 170mm Hip Trochanter [id number] Intramedullary 125d Titanium Sterile - [id number] Implanted:Qty: 1 on 04/19/2022 by Darron Lewis DO at [facility] Nail Right: Femur [employer] [id number] 08/14/2026 [id number] / / [id number] Screw Della Lag 10.5mm X 95mm - [id number] Implanted:Qty: 1 on 04/19/2022 by Darron Lewis DO at [facility] Screw Right: Femur [employer] [id number] 08/14/2026 [id number] / / [id number] Della Imn Screws System Locking Screw Implanted:Qty: 1 on 04/19/2022 by Darron Lewis DO at [facility] Right: Femur [employer] [id number] 07/15/2031 [id number] / / [id number] Procedures Procedure Name Priority Date/Time Associated Diagnosis Comments USV MOSES LTD RT STAT 05/16/2025 4:19 PM CDT USV JUAN DUPLEX LOW EXT RT STAT 05/16/2025 4:19 PM CDT C-REACTIVE PROTEIN STAT 05/16/2025 3: 45 PM CDT COMPREHENSIVE METABOLIC PANEL STAT 05/16/2025 3:45 PM CDT CBC W/DIFF AUTOMATED STAT 05/16/2025 3:[address] LUNG SCREENING Routine 05/14/2025 12: 55 PM CDT Former smoker OCCULT BLOOD, FECES Routine 05/18/2022 1 0:20 AM CDT MG SCREENING W GAEL FANNIE DIGI Routine 03/14/2021 1:17 PM CDT Visit for screening mammogram from Last 3 Months or Most Recently Relevant to Health Maintenance Results * USV MOSES LTD RT (05/16/2025 4:19 PM CDT) Anatomical Region Laterality Modality Extremity Ultrasound 05/16/2025 4:28 PM CDT Impressions 05/16/2025 4:31 PM CDT IMPRESSION: Severe ischemic range perfusion at the ankle on resting study. Referred By: Interpreted By: Davion Ely MD, 05/16/2025 4:28 PM Narrative 05/16/2025 4:31 PM CDT [facility] [address] [place] [address] Examination: USV [employer] RT Exam time: 05/16/2025 3:38 PM INDICATION: PVD. HX OF RT ILIOFEMORAL ENDART WITH RT EXT ILIAC STENT PLACEMENT 2023. 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 Hypertension. TECHNIQUE: Doppler sonographic evaluation of the right lower extremity was performed and pressure readings were assessed. Ankle brachial index calculated. FINDINGS: Right brachial pressure: 152 mmHg Left brachial pressure: 152 mmHg Right ankle: Ankle pressure (posterior tibial): 41 mmHg MOSES (posterior tibial): 0.27 Ankle pressure (dorsalis pedis): 38 mmHg MOSES (dorsalis pedis): 0.25 Waveforms: Irregular, small Doppler signal. Procedure Note Davion Ely MD - 05/16/2025 [place] [address] Examination: USV [employer] RT Exam time: 05/16/2025 3:38 PM INDICATION: PVD. HX OF RT ILIOFEMORAL ENDART WITH RT EXT ILIAC STENTPLACEMENT 2023. 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 Hypertension. TECHNIQUE: Doppler sonographic evaluation of the right lower extremity wasperformed and pressure readings were assessed. Ankle brachial indexcalculated. FINDINGS: Right brachial pressure: 152 mmHg Left brachial pressure: 152 mmHg Right ankle: Ankle pressure (posterior tibial): 41 mmHg MOSES (posterior tibial): 0.27 Ankle pressure (dorsalis pedis): 38 mmHg MOSES (dorsalis pedis): 0.25 Waveforms: Irregular, small Doppler signal. IMPRESSION: Severe ischemic range perfusion at the ankle on resting study. Referred By: Interpreted By: Davion Ely MD, 05/16/2025 4:28 PM Byron Harris MD VASC Final Resul t * USV JUAN DUPLEX LOW EXT RT (05/16/2025 4:19 PM CDT) Anatomical Region Laterality Modality Extremity Ultrasound 05/16/2025 4:25 PM CDT Impressions 05/16/2025 4:27 PM CDT IMPRESSION: No sonographic evidence is seen to suggest deep venous thrombosis in the visualized RIGHT lower extremity deep venous system. Referred By: Interpreted By: Amor Tan DO, 05/16/2025 4:25 PM Narrative 05/16/2025 4:27 PM CDT [facility] [address] [place] [address] Examination: USV JUAN DUPLEX LOW EXT RT Exam time: 05/16/2025 3:38 PM Clinical history: Right lower extremity pain. Concern for deep venous thrombosis. Comparison: Lower extremity Doppler 11/01/2023. Technique: Sonographic evaluation of the RIGHT lower extremity deep venous system was performed to assess grayscale, color Doppler, and spectral waveform characteristics. Findings: The visualized RIGHT greater saphenous vein, common femoral vein, deep femoral vein, femoral vein, and popliteal vein demonstrate appropriate compressibility on grayscale images, appropriate color Doppler flow, and response to augmentation on spectral waveform analysis. The proximal to mid RIGHT posterior tibial vein is not visualized on this examination. The visualized RIGHT posterior tibial vein demonstrates appropriate color Doppler flow. The visualized LEFT common femoral vein demonstrates appropriate color Doppler flow with appropriate response to augmentation on spectral waveform analysis. Procedure Note Amor Tan DO - 05/16/2025 [facility] [address] [place] [address] Examination: USV JUAN DUPLEX LOW EXT RT Exam time: 05/16/2025 3:38 PM Clinical history: Right lower extremity pain. Concern for deep venousthrombosis. Comparison: Lower extremity Doppler 11/01/2023. Technique: Sonographic evaluation of the RIGHT lower extremity deep venoussystem was performed to assess grayscale, color Doppler, and spectralwaveform characteristics. Findings: The visualized RIGHT greater saphenous vein, common femoral vein, deepfemoral vein, femoral vein, and popliteal vein demonstrate appropriatecompressibility on grayscale images, appropriate color Doppler flow, andresponse to augmentation on spectral waveform analysis. The proximal tomid RIGHT posterior tibial vein is not visualized on this examination.The visualized RIGHT posterior tibial vein demonstrates appropriate colorDoppler flow. The visualized LEFT common femoral vein demonstrates appropriate colorDoppler flow with appropriate response to augmentation on spectralwaveform analysis. IMPRESSION: No sonographic evidence is seen to suggest deep venous thrombosis in thevisualized RIGHT lower extremity deep venous system. Referred By: Interpreted By: Amor Tan DO, 05/16/2025 4:25 PM Byron Harris MD [facility] Final Resul t * (ABNORMAL) COMPREHENSIVE METABOLIC PANEL (05/16/2025 3:45 PM CDT) GLUCOSE 98 70 - 99 MG/DL 05/16/2025 4:11 PM CDT [facility] BUN 17 7 - 18 MG/DL 05/16/2025 4:11 PM CDT [facility] CREATININE S/P/B 1.19(H) 0.55 - 1.02 MG/DL 05/16/2025 4:11 PM CDT [facility] SODIUM S/P/B 136 136 - 145 MMOL/L 05/16/2025 4:11 PM CDT [facility] POTASSIUM S/P/B 4.4 3.5 - 5.1 MMOL/L 05/16/2025 4:11 PM CDT [facility] CHLORIDE S/P/B 101 100 - 108 MMOL/L 05/16/2025 4:11 PM CDT [facility] CO2 32.2(H) 21 - 32 MMOL/L 05/16/2025 4:11 PM CDT [facility] CALCIUM S/P/B 9.4 8.5 - 10.1 MG/DL 05/16/2025 4:11 PM CDT [facility] BILIRUBIN TOTAL S/P/B 0.4 0.2 - 1.2 MG/DL 05/16/2025 4:11 PM [facility] TOTAL PROTEIN S/P/B 7.4 6.4 - 8.2 G/DL 05/16/2025 4:11 PM [facility] ALBUMIN S/P/B 2.5(L) 3.4 - 5.0 G/DL 05/16/2025 4:11 PM [facility] AST 12(L) 15 - 37 U/L 05/16/2025 4:11 PM [facility] ALT 21 14 - 55 U/L 05/16/2025 4:11 PM [facility] ALKALINE PHOSPHATASE S/P/B 115 50 - 136 U/L 05/16/2025 4:11 PM [facility] ANION GAP 2.8(L) 5 - 15 MMOL/L 05/16/2025 4:11 PM [facility] BUN CREATININE RATIO 14.3 6 - 26 05/16/2025 4:11 PM [facility] A/G RATIO 0.5(L) 1.0 - 2.0 RATIO 05/16/2025 4:11 PM [facility] GFR ESTIMATE 49(L) >90 ML/MIN/1.7 3 M2 05/16/2025 4:11 PM [facility] Comment: NOTE: eGFR is not calculated for patients <18 years of age. This is an estimated GFR calculation using the new CKD EPI creatinine equation without race and so does not require a correction factor for race. This estimated GFR should not be used for calculating drug doses. 05/16/2025 3:45 PM CDT us Byron Harris MD LABORATORY Final Resul t [facility] [address] [place] [address], [place] [phone] * (ABNORMAL) C-REACTIVE PROTEIN (05/16/2025 3:45 PM CDT) [facility] C-REACTIVE PROTEIN 11.70(H) <0.29 mg/dL 05/16/2025 8:13 PM CDT [facility] 05/16/2025 3:45 PM CDT Byron Harris MD LABORATORY Final Resul t [facility] [address] [place] [address], [place] [phone] * (ABNORMAL) CBC W/DIFF AUTOMATED (05/16/2025 3:45 PM CDT) [facility] WBC 4.41 4.4 - 11.0 x10'3/uL 05/16/2025 3:57 PM CDT [facility] RBC 3.51(L) 4.50 - 5.10 x10'6/uL 05/16/2025 3:57 PM CDT [facility] HGB 9.3(L) 12.3 - 15.3 G/DL 05/16/2025 3:57 PM CDT [facility] HCT 30.4(L) 35.9 - 44.6 % 05/16/2025 3:57 PM CDT [facility] MCV 86.6 80.0 - 96.0 FL 05/16/2025 3:57 PM CDT [facility] MCH 26.5 25.3 - 30.9 PG 05/16/2025 3:57 PM CDT [facility] MCHC 30.6(L) 31.0 - 34.1 G/DL 05/16/2025 3:57 PM CDT [facility] RDW 20.2(H) 12.4 - 15.1 % 05/16/2025 3:57 PM CDT [facility] PLT 251 151 - 353 x10'3/uL 05/16/2025 3:57 PM CDT [facility] MPV 8.7(L) 9.6 - 12.0 FL 05/16/2025 3:57 PM CDT [facility] RBC MORPHOLOGY NORMAL 05/16/2025 3:57 PM CDT [facility] PLT MORPH. NORMAL 05/16/2025 3:57 PM CDT [facility] WBC MORPHOLOGY NORMAL 05/16/2025 3:57 PM CDT [facility] LYMPHOCYTES % 20.2 15.8 - 45.0 % 05/16/2025 3:57 PM CDT [facility] NEUTROPHILS % 67.7 42.1 - 71.9 % 05/16/2025 3:57 PM CDT [facility] MONOCYTES % 8.6 5.7 - 12.5 % 05/16/2025 3:57 PM CDT [facility] EOSINOPHILS 2.3 0.0 - 5.6 % 05/16/2025 3:57 PM CDT [facility] BASOPHILS 0.5 0.0 - 1.3 % 05/16/2025 3:57 PM CDT [facility] ABS. NEUTROPHILS 2.99 1.40 - 6.00 x10'3/uL 05/16/2025 3:57 PM CDT [facility] IMMATURE GRANS % 0.7(H) 0.0 - 0.5 % 05/16/2025 3:57 PM CDT [facility] ABS. LYMPHOCYTES 0.89 0.80 - 4.70 x10'3/uL 05/16/2025 3:57 PM CDT [facility] 05/16/2025 3:45 PM CDT Byron Harris MD LABORATORY Final Resul t [facility] [address] [place] [address], * CT LUNG SCREENING (05/14/2025 12:55 PM CDT) Anatomical Region Laterality Modality Chest Computed Tomogra phy 05/23/2025 11:3 6 AM CDT Impressions 05/23/2025 11:39 AM CDT IMPRESSION: 1. LUNG-RADS category 1: Negative 2. LUNG-RADS category S: Negative, no new/unknown potentially significant incidental findings requiring urgent additional evaluation. 3. Other incidental findings as above. RECOMMENDATIONS: Continued routine annual LDCT lung screening. Suggest next exam on or around April 2026 Thank you for choosing the [facility] Lung Screening Program. Ordered By: LEIGH SWANSON Interpreted By: Davion Ely MD, 05/23/2025 11:36 AM Narrative 05/23/2025 11:39 AM CDT [place] [id number] [place] [id number] EXAM: LUNG SCREENING LOW-DOSE CT THORAX WITHOUT CONTRAST DATE: 05/14/2025 HISTORY: Asymptomatic patient with history of smoking meeting CMS high-risk criteria for lung screening. * 70 years * 30 pack years or greater * Current smoker or have quit smoking within the last 15 years COMPARISON: 05/14/2022 TECHNIQUE: Noncontrast, helical, low-dose CT (LDCT) chest per standard departmental protocol. A dose lowering technique was used for this procedure, which may include, but is not limited to, dose reduction techniques, automated exposure control, and/or the use of iterative reconstruction, in accordance with ALARA (As Low As Reasonably Achievable)/Image Gently principle. FINDINGS: Lung Screening Specific (LUNG-RADS): Old granulomata. Potentially Significant Incidentals (LUNG-RADS category S): Negative Pulmonary Incidentals: Mild COPD with scarring. Other Incidentals: Aortic/arterial calcifications. Splenomegaly with morphologic changes in liver suggestive of cirrhosis. Correlate liver labs. Spondylosis. Osteoporosis. And old rib fractures. Procedure Note Davion Ely MD - 05/23/2025 [place] [id number] [place] [id number] EXAM: LUNG SCREENING LOW-DOSE CT THORAX WITHOUT CONTRAST DATE: 05/14/2025 HISTORY: Asymptomatic patient with history of smoking meeting CMShigh-risk criteria for lung screening. * 70 years * 30 pack years or greater * Current smoker or have quit smoking within the last 15 years COMPARISON: 05/14/2022 TECHNIQUE: Noncontrast, helical, low-dose CT (LDCT) chest per standarddepartmental protocol. A dose lowering technique was used for thisprocedure, which may include, but is not limited to, dose reductiontechniques, automated exposure control, and/or the use of iterativereconstruction, in accordance with ALARA (As Low As ReasonablyAchievable)/Image Gently principle. FINDINGS: Lung Screening Specific (LUNG-RADS): Old granulomata. Potentially Significant Incidentals (LUNG-RADS category S): Negative Pulmonary Incidentals: Mild COPD with scarring. Other Incidentals: Aortic/arterial calcifications. Splenomegaly withmorphologic changes in liver suggestive of cirrhosis. Correlate liverlabs. Spondylosis. Osteoporosis. And old rib fractures. IMPRESSION: 1. LUNG-RADS category 1: Negative 2. LUNG-RADS category S: Negative, no new/unknown potentially significantincidental findings requiring urgent additional evaluation. 3. Other incidental findings as above. RECOMMENDATIONS: Continued routine annual LDCT lung screening. Suggestnext exam on or around April 2026 Thank you for choosing the [facility]ening[facility]. Ordered By: LEIGH SWANSON Interpreted By: Davion Ely MD, 05/23/2025 11:36 AM Leigh Swanson MD CT Final Result * OCCULT BLOOD, FECES (05/18/2022 10:20 AM CDT) OCCULT BLOOD FECAL NEGATIVE NEGATIVE 05/18/2022 11:17 AM CDT [facility] STOOL SPECIMEN / Unknown 05/18/2022 10:20 AM CDT Braulio Hatch CREDIT UNDERWRITER BODY FLUIDS AND STOOLS ORDERAB LES Final Result [facility] [address] [place] [address], [place] [phone] * MG SCREENING W GAEL FANNIE DIGI (03/14/2021 1:17 PM CDT) Anatomical Region Laterality Modality Breast Bilateral Mammography 03/14/2021 1:41 PM CDT Impressions 03/14/2021 1:44 PM CDT IMPRESSION: 1. No mammographic evidence of malignancy. Recommend annual mammogram. 2. BI-RADS Category 2 - benign findings. 3. TISSUE TYPE: Category A - The breasts are almost entirely fatty. MQSA BI-RADS Categories: Category 0 - needs additional imaging evaluation. Category 1 - negative. Category 2 - benign findings. Category 3 - probably benign findings, but short interval follow-up is recommended. Category 4 - suspicious abnormality and biopsy should be considered though the lesion may well be benign. Category 5 - highly suggestive of malignancy and appropriate action should be taken. A) A negative report should not delay a biopsy if a dominant or clinically suspicious mass is present. B) Adenosis and dense breasts may obscure an underlying neoplasm. C) Study interpreted with computer aided detection. Referred By: SAMMY SUAZO Interpreted By: Pop Norton, 03/14/2021 1:41 PM Narrative 03/14/2021 1:44 PM CDT IMAGING STUDIES: MG SCREENING W GAEL MARIE DATE: 03/14/2021 12:58 PM HISTORY: Visit for screening mammogram 66-year-old female for screening study. COMPARISON: Screening mammograms 01/24/2019 and 09/09/2017. DISCUSSION: Bilateral digital screening mammogram with CAD. Standard mammographic views. 2-D imaging and 3-D tomography. Primarily fatty replaced breast parenchymal pattern with mild fibroglandular elements. Benign calcifications including dermal calcifications. No mammographically suspicious mass, microcalcification, or architectural distortion. us Sammy Suazo MD MAMMO Final Result from Last 3 Months or Most Recently Relevant to Health Maintenance Additional Health Concerns Infection Onset Date Last Indicated MRSA Comment:05/15/22 kell (BrandonK) 05/16/2022 05/16/[address] [place] [address] [place] [address] Advance Directives * Full Code (Latest Code Status on File) Date Activated Date Inactivated Comments 11/01/2023 5:02 PM 11/10/2023 4:02 PM * Full Code Date Activated Date Inactivated Comments 05/14/2022 8:27 AM 05/24/2022 4:50 PM * Full Code Date Activated Date Inactivated Comments 04/19/2022 1:30 PM 04/21/2022 5:56 PM * Full Code Date Activated Date Inactivated Comments 04/18/2022 9:46 AM 04/19/2022 1:30 PM * Full Code Date Activated Date Inactivated Comments 08/27/2021 3:26 PM 08/28/2021 6:46 PM Care Teams Rotary Helper Relationship Specialty Start Date End Date Sammy Suazo MD [address] [place] [id number] PCP - General FAMILY PRACTICE 07/24/19
--- OUTSIDE RECORDS SUMMARY | 2025-05-30 05:16 | XMS_ITS | Encounter Summary ---
Author Organization [facility] Address [address] [place] [address] Care Team Providers Care Jr. Systems Administrator Name Role Phone Keegan Merino MD Primary Care Provider [phone] Encounter Details Date Type Department Care Team (Late st Contact Info) Description 09/09/[address] [facility] [address] [place], [place] [id number] Keegan Merino MD [address] [place] [id number] Social History Tobacco Use Types Packs/Day Years Used Date Smoking Tobacco: Never Assessed Comments Unknown Sex and Gender Information Value Date Recorded Sex Assigned at Female 05/14/2025 12:33 PM CDT Legal Sex Female 6:51 PM CDT Gender Identity Not on file Sexual Orientation Not on file documented as of this encounter Plan of Treatment Not on file documented as of this encounter Visit Diagnoses Diagnosis Encounter for screening mammogram for malignant neoplasm of breast Other screening mammogram documented in this encounter Additional Health Concerns Infection Onset Date Last Indicated Resolved Time COVID-19 Rule Out 09/27/2021 09/27/2021 09/28/2021 5: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 Systems Administrator Relationship Specialty Start Date End Date Keegan Merino MD [address] [place] [address] PCP - General FAMILY PRACTICE 07/24/19 documented as of this encounter
[2025-05-30] MEDS: NEOMYCIN/POLYMYXIN/BACITRACIN OINTMENT PACKET 4 PACKET TOPICAL (05:27)
[2025-05-30 05:45] VITALS: BP 135/92
== END 2025-05-30 05:45 | disposition home or self-care (01) ==
PROVIDERS: Emergency Provider Emergency Medicine; PCP Emergency Medicine
DX: Z48.01 Encounter for change or removal of surgical wound dressing (principal); I10 Essential (primary) hypertension; F17.210 Nicotine dependence, cigarettes, uncomplicated
CPT/HCPCS: 99282

== ENCOUNTER 2025-06-04 13:09 | Outpatient (CLI) | payer OTHER, SELFPAY ==
--- NOTE | ~2025-06-04 | XR_ITS ---
EXAM: XR foot RT min 3V DATE: 06/04/2025 13:35 HISTORY: osteomyletis x 4 weeks . COMPARISON: None available. FINDINGS: Decreased mineralization. No fracture or dislocation. No lytic or blastic lesion. Mild deg enerative change at the ankle joint and multiple midfoot joints as well as the first MTP joint. Plant ar enthesopathy. No erosion or periosteal change. Diffuse soft tissue swelling about the foot and ank le. IMPRESSION: Osteopenia. No acute osseous finding in the right foot. Specifically no definite radiogra phic evidence of osteomyelitis. Comparison to outside studies would be helpful if available, or speci fic direction to the area of clinical concern. Reviewed, dictated and finalized at location K. IMPRESSION: Osteopenia. No acute osseous finding in the right foot. Specificall y no definite radiographic evidence of osteomyelitis. Comparison to outside riana dies would be helpful if available, or specific direction to the area of clinic al concern.
--- OUTSIDE RECORDS SUMMARY | 2025-06-04 13:17 | XMS_ITS | Encounter Summary ---
Author Organization [facility] Address [address] [place] [address] Care Team Providers Care Intelligence Officer Name Role Phone Keegan Merino MD Primary Care Provider [phone] Encounter Details Date Type Department Care Team (Late st Contact Info) Description 09/09/[address] [facility] [address] [place], [place] [id number] Keegan Merino MD [address] [place] [id number] Social History Tobacco Use Types Packs/Day [...] Rule Out 09/27/2021 09/27/2021 09/28/2021 5:06 PM PROFESSOR OF SURGERY COVID-19 Rule Out 05/13/2022 05/13/2022 05/13/2022 3:19 PM CDT MRSA Comment:05/15/22 kell (MICHAEL) 05/16/2022 05/16/2022 COVID-19 Rule Out 11/01/2023 11/01/2023 11/01/2023 6:33 PM PROFESSOR OF SURGERY documented as of this encounter Care Teams Intelligence Officer Relationship Specialty Start Date End Date Keegan Merino MD [address] [place] [address] PCP - General FAMILY PRACTICE 07/24/19 documented as of this encounter
--- OUTSIDE RECORDS SUMMARY | 2025-06-04 13:17 | XMS_ITS | Clinical Summary ---
Author Organization [facility] Address [address] [place] [address] Care Team Providers Care Conservation Planner Name Role Phone Sammy Suazo MD Primary Care Provider [phone] Allergies Active Allergy Reactions Criticality Noted Date [...] DEVICE, DME,Indications:CO PD (chronic obstructive pulmonary disease) ([facility]) 1 Device by Does not apply route nightly at bedtime. IPAP 14 EPAP 7 6L oxygen bled in. Mask and Tubing. 1 Device 11/09/20 Active OXYGEN CONCENTRATOR SUPPLY, DME,Indications:CO PD (chronic obstructive pulmonary disease) ([facility]) 1 Device by Nasal route continuous. High Flow Nasal Cannula. 3L with rest, 6L with activity. Portable Tanks. High Liter Flow concentrator 1 Device 11/09/20 Active WALKER MISC, DME,Indications:CO PD (chronic obstructive pulmonary disease) ([facility]),Leg ulcer, right, with fat layer exposed ([facility]),Bilateral leg edema,Primary osteoarthritis of right knee,Loose, body, [...] 03/13/2025 COPD (chronic obstructive pu lmonary disease) ([facility]) 11/01/2023 Closed right hip fracture, i nitial encounter ([facility]) 04/18/2022 Venous insufficiency 02/11/2022 Bilateral leg edema 01/15/2022 Leg ulcer, right, with fat layer exposed ([facility]) 01/15/2022 PAD (peripheral artery disease) 01/15/2022 Tobacco abuse 01/15/2022 Acute respiratory failure ([facility]) 08/15 Non-healing wound of right lower extremity 07/15 Cellulitis 06/30/2021 Loose, body, joint, knee, right 04/10/2021 Appiah's cyst of knee, left 07/02/2020 Bone marrow edema 07/02/2020 Primary osteoarthritis of right knee 06/05/2020 Encounters Date Type Department Care Team Description 05/16/2025 1:48 PM CDT - 05/16/2025 6:15 PM CDT Emergency [facility] Emergency Room [address] [place] [id number] Byron Harris MD Rash Discharge Disposition: Home or Self Care (Routine Discharge) 05/16/2025 Travel 05/14/2025 12:37 PM CDT - 05/14/2025 11:59 PM CDT Hospital Encounter [facility] [address] [place] [address] Leigh Swanson MD Discharge Disposition: Home or Self Care (Routine Discharge) 05/14/2025 Travel 03/27/2025 1:45 PM CDT - 03/27/2025 2:42 PM CDT Hospital Encounter [facility] [address] [place] [address] Sammy Suazo MD Discharge Disposition: Home or Self Care (Routine Discharge) 03/27/2025 Travel 03/20/2025 1:56 PM CDT - 03/20/2025 3:08 PM CDT Hospital Encounter [facility] [address] [place] [address] Sammy Suazo MD Discharge Disposition: Home or Self Care (Routine Discharge) 03/20/2025 Travel 03/14/2025 Orders Only [address] [place] [address] Richard Talley MD 03/13/2025 Therapy Plan [facility] One Day [facility] [address] [place] [address] Sammy Suazo MD from Last 3 Months [...] oz pur e alcohol) on special occasions [facility] Utilities Answer Date Recorded In the past 12 months has [facility] [employer]wil[employer], oil, or water [employer] threatened to shut off services in your [...] place to sleep or slept in a snf (including now)? No 11/01/2023 Comments No Sex [...] season) 2024 02/17/2021, 01/27/2021, 02/18/2012 PHQ-2 (Physician [place]) 11/15/2024 Colorectal Cancer Screening FIT/FOBT (1 Year) [...] perform ADLs independently General No Hermelinda Nichols, HORSER UP Patient will return to prior living situation and remain independent in ADLs upon discharge from hospital General No Hermelinda Nichols, HORSER UP Health - patient able to perform ADLs independently General No Ca Beyer RN Medical Devices Implanted Type Area Ball Thread Machine Tender Device Identifier Shelf Expiration Date Model / Serial / Lot Nail 10mm 170mm Hip Trochanter Gamma3 Intramedullary 125d Titanium Sterile - [id number] Implanted:Qty: 1 on 04/19/2022 by Darron Lewis DO at [facility] Nail Right: Femur [employer] [id number] 08/14/2026 [id number] / / [id number] Screw Della Lag 10.5mm X 95mm - [id number] Implanted:Qty: 1 on 04/19/2022 by Darron Lewis DO at [facility] Screw Right: Femur [employer] [id number] 08/14/2026 [id number] / / [id number] Della Imn Screws System Locking Screw Implanted:Qty: 1 on 04/19/2022 by Darron Lewis DO at [facility] Right: Femur [employer] [id number] 07/15/2031 [id number] / / [id number] Procedures Procedure Name Priority Date/Time Associated Diagnosis [...] 4:28 PM Narrative 05/16/2025 4:[address] [facility] [address] [place] [address] Examination: USV [employer] RT Exam time: 05/16/2025 3:38 PM INDICATION: [...] Procedure Note Davion Ely MD - 05/16/2025 [place] [address] Examination: [employer]V [employer] RT Exam time: 05/16/2025 3:38 PM INDICATION: [...] By: Davion Ely MD, 05/16/2025 4:28 PM Byorn Harris MD VASC Final Resul t * [...] 4:25 PM Narrative 05/16/2025 4:[address] [facility] [address] [place] [address] Examination: USV JUAN DUPLEX LOW EXT RT [...] Procedure Note Amor Tan DO - 05/16/2025 [facility] [address] [place] [address] Examination: USV JUAN DUPLEX LOW EXT RT [...] DO, 05/16/2025 4:25 PM Byron Harris MD [facility] Final Resul t * (ABNORMAL) COMPREHENSIVE METABOLIC PANEL (05/16/2025 3:45 PM CDT) GLUCOSE 98 70 - 99 MG/DL 05/16/2025 4:11 PM CDT [facility] BUN 17 7 - 18 MG/DL 05/16/2025 4:11 PM CDT [facility] CREATININE S/P/B 1.19(H) 0.55 - 1.02 MG/DL 05/16/2025 4:11 PM CDT [facility] SODIUM S/P/B 136 136 - 145 MMOL/L 05/16/2025 4:11 PM CDT [facility] POTASSIUM S/P/B 4.4 3.5 - 5.1 MMOL/L 05/16/2025 4:11 PM CDT [facility] CHLORIDE S/P/B 101 100 - 108 MMOL/L 05/16/2025 4:11 PM CDT [facility] CO2 32.2(H) 21 - 32 MMOL/L 05/16/2025 4:11 PM CDT [facility] CALCIUM S/P/B 9.4 8.5 - 10.1 MG/DL 05/16/2025 4:11 PM CDT [facility] BILIRUBIN TOTAL S/P/B 0.4 0.2 - 1.2 MG/DL 05/16/2025 4:11 PM [facility] TOTAL PROTEIN S/P/B 7.4 6.4 - 8.2 G/DL 05/16/2025 4:11 PM [facility] ALBUMIN S/P/B 2.5(L) 3.4 - 5.0 G/DL 05/16/2025 4:11 PM [facility] AST 12(L) 15 - 37 U/L 05/16/2025 4:11 PM [facility] ALT 21 14 - 55 U/L 05/16/2025 4:11 PM [facility] ALKALINE PHOSPHATASE S/P/B 115 50 - 136 U/L 05/16/2025 4:11 PM [facility] ANION GAP 2.8(L) 5 - 15 MMOL/L 05/16/2025 4:11 PM [facility] BUN CREATININE RATIO 14.3 6 - 26 05/16/2025 4:11 PM [facility] A/G RATIO 0.5(L) 1.0 - 2.0 RATIO 05/16/2025 4:11 PM [facility] GFR ESTIMATE 49(L) >90 ML/MIN/1.7 3 M2 05/16/2025 4:11 PM [facility] Comment: NOTE: eGFR is not calculated for patients <18 years of age. This is an estimated GFR calculation using the new CKD EPI creatinine equation without race and so does not require a correction factor for race. This estimated GFR should not be used for calculating drug doses. 05/16/2025 3:45 PM CDT us Byron Harris MD LABORATORY Final Resul t [facility] [address] [place] [address], [place] [phone] * (ABNORMAL) C-REACTIVE PROTEIN (05/16/2025 3:45 PM CDT) [facility] C-REACTIVE PROTEIN 11.70(H) <0.29 mg/dL 05/16/2025 8:13 PM CDT [facility] 05/16/2025 3:45 PM CDT Byron Harris MD LABORATORY Final Resul t [facility] [address] [place] [address], [place] [phone] * (ABNORMAL) CBC W/DIFF AUTOMATED (05/16/2025 3:45 PM CDT) [facility] WBC 4.41 4.4 - 11.0 x10'3/uL 05/16/2025 3:57 PM CDT [facility] RBC 3.51(L) 4.50 - 5.10 x10'6/uL 05/16/2025 3:57 PM CDT [facility] HGB 9.3(L) 12.3 - 15.3 G/DL 05/16/2025 3:57 PM CDT [facility] HCT 30.4(L) 35.9 - 44.6 % 05/16/2025 3:57 PM CDT [facility] MCV 86.6 80.0 - 96.0 FL 05/16/2025 3:57 PM CDT [facility] MCH 26.5 25.3 - 30.9 PG 05/16/2025 3:57 PM CDT [facility] MCHC 30.6(L) 31.0 - 34.1 G/DL 05/16/2025 3:57 PM CDT [facility] RDW 20.2(H) 12.4 - 15.1 % 05/16/2025 3:57 PM CDT [facility] PLT 251 151 - 353 x10'3/uL 05/16/2025 3:57 PM CDT [facility] MPV 8.7(L) 9.6 - 12.0 FL 05/16/2025 3:57 PM CDT [facility] RBC MORPHOLOGY NORMAL 05/16/2025 3:57 PM CDT [facility] PLT MORPH. NORMAL 05/16/2025 3:57 PM CDT [facility] WBC MORPHOLOGY NORMAL 05/16/2025 3:57 PM CDT [facility] LYMPHOCYTES % 20.2 15.8 - 45.0 % 05/16/2025 3:57 PM CDT [facility] NEUTROPHILS % 67.7 42.1 - 71.9 % 05/16/2025 3:57 PM CDT [facility] MONOCYTES % 8.6 5.7 - 12.5 % 05/16/2025 3:57 PM CDT [facility] EOSINOPHILS 2.3 0.0 - 5.6 % 05/16/2025 3:57 PM CDT [facility] BASOPHILS 0.5 0.0 - 1.3 % 05/16/2025 3:57 PM CDT [facility] ABS. NEUTROPHILS 2.99 1.40 - 6.00 x10'3/uL 05/16/2025 3:57 PM CDT [facility] IMMATURE GRANS % 0.7(H) 0.0 - 0.5 % 05/16/2025 3:57 PM CDT [facility] ABS. LYMPHOCYTES 0.89 0.80 - 4.70 x10'3/uL 05/16/2025 3:57 PM CDT [facility] 05/16/2025 3:45 PM CDT Byron Harris MD LABORATORY Final Resul t [facility] [address] [place] [address], * CT LUNG SCREENING (05/14/2025 12:55 PM [...] April 2026 Thank you for choosing the [facility] Screening Program. Ordered By: LEIGH SWANSON Interpreted By: Davion Ely MD, 05/23/2025 11:36 AM Narrative 05/23/2025 11:39 AM CDT [place] [address] [place] [address] EXAM: LUNG SCREENING LOW-DOSE CT THORAX WITHOUT [...] Procedure Note Davion Ely MD - 05/23/2025 [place] [address] [place] [address] EXAM: LUNG SCREENING LOW-DOSE CT THORAX WITHOUT [...] April 2026 Thank you for choosing the [facility] Screening[facility]. Ordered By: LEIGH SWANSON Interpreted By: Davion Ely MD, 05/23/2025 11:36 AM Leigh Swanson MD CT Final Result * OCCULT BLOOD, FECES (05/18/2022 10:20 AM CDT) OCCULT BLOOD FECAL NEGATIVE NEGATIVE 05/18/2022 11:17 AM CDT [facility] STOOL SPECIMEN / Unknown 05/18/2022 10:20 AM CDT Braulio Hatch INJECTION MOULDING MACHINE OPERATOR BODY FLUIDS AND STOOLS ORDERAB LES Final Result [facility] [address] [place] [address], [place] [phone] * MG SCREENING W GAEL FANNIE DIGI [...] Comment:05/15/22 kell (BrandonK) 05/16/2022 05/16/[address] [place] [address] Advance Directives * Full Code (Latest Code [...] 3:26 PM 08/28/2021 6:46 PM Care Teams Conservation Planner Relationship Specialty Start Date End Date Sammy Suazo MD [address] [place] [phone] PCP - General FAMILY PRACTICE 07/24/19
--- OUTSIDE RECORDS SUMMARY | 2025-06-04 13:17 | XMS_ITS | Encounter Summary ---
Author Organization [facility] Address [address] [place] [address] Care Team Providers Care Child Protection Specialist Name Role Phone Keegan Merino MD Primary Care Provider [phone] Encounter Details Date Type Department Care Team (Late st Contact Info) Description 03/13/2025 Therapy Plan [facility] [address] [place], [place] [phone] Keegan Merino MD [address] [place] [phone] Social History Tobacco Use Types Packs/Day Years Used Date Smoking Tobacco: Every Day Cigarettes 1 48 Smokeless Tobacco: Former Comments:10 a day Alcohol Use Standard Drinks/Week Comments Yes 0 (1 standard drink = 0.6 oz pur e alcohol) on special occasions [facility] Utilities Answer Date Recorded In the past [...] place to sleep or slept in a jail (including now)? No 11/01/2023 Comments No Sex [...] Assessment Author Status No 11/01/2023 4:19 PM SUPERVISOR VENDOR QUALITY Wendy López R N Active * Are [...] perform ADLs independently General No Hermelinda Nichols, ROBOTIC MACHINE OPERATOR Patient will return to prior living situation and remain independent in ADLs upon discharge from hospital General No Hermelinda Nichols ROBOTIC MACHINE OPERATOR Health - patient able to perform ADLs independently General No Ca Beyer RN documented as of this encounter Visit Diagnoses Diagnosis Anemia, unspecified- Primary Iron deficiency anemia Iron deficiency anemia, unspecified documented in this encounter Additional Health Concerns Infection Onset Date Last Indicated Resolved Time MRSA Comment:05/15/22 kell (MICHAEL) 05/16/2022 05/16/2022 documented as of this encounter Care Teams Child Protection Specialist Relationship Specialty Start Date End Date Keegan Merino MD [address] [place] [address] PCP - General FAMILY PRACTICE 07/24/19 documented as of this encounter
--- OUTSIDE RECORDS SUMMARY | 2025-06-04 13:17 | XMS_ITS | Clinical Summary ---
Author Organization [facility] Address [address] [place] [address] Care Team Providers Care Media Arts Professor Name Role Phone Keegan Merino MD Primary Care Provider [phone] Source Comments [facility],non-owned Affiliates and Associated Physician Practices is amultiple site organization consisting of ambulatory clinics and hospital sitesin [place], [place], [place] and [place]. This disclosure is being madepursuant to the Care Everywhere program and may not contain all information available regarding this patient. Last updated 18.[facility] Allergies Active Allergy Reactions Criticality Noted Date [...] (Lasix) 40 MG tablet Active HYDROcodone-acetaminop hen (Jamul) 5-325 MG tablet Active Trelegy Ellipta 200-62.5-25 [...] needed for Constipation 527 g 025 Active amoxicillin-clavulanat e (Augmentin) 875-125 MG tablet Take 1 (one) tablet by mouth 2 times daily with morning and evening meal for 5 days 10 tablet 025 2024 Active oxyCODONE, immediate release, (Roxicodone) 10 MG [...] artery. Admitted to MICU with vascular surgery. embolectomy of R iliofemoral artery w/ L [...] Encounters Date Type Department Care Team Description 05/31/2025 10:15 AM CDT Office Visit [facility] - Vascular Surgery [address] [place] [address], [place] [address] Glen Fischer MD Osteomyelitis, unspecified site, unspecified type (HCC) (Primary Dx) 05/31/2025 Travel 05/29/2025 Telephone Transitional Care at [facility] [address] [place] [phone] Berenice Benito, maintenance journeyman 05/28/2025 Transitional Care [facility] CARE COORDINATION [address] [place] [phone] Anne Quiñones RN Transitions Of Care 05/22/2025 11:35 AM CDT - 05/22/2025 3:26 PM CDT Surgery [facility] RACHID OP [address] [place] [phone] Clara Tripathi MD RIGHT FEMORAL EMBOLECTOMY; FEMORAL-FEMORAL BYPASSLEVEL 4 0839 05/22/2025 11:33 AM CDT Anesthesia Event [facility] [address] [place] [phone] Kemi Duval MD 05/22/2025 1:55 AM CDT - 05/27/2025 3:54 PM CDT Hospital Encounter [facility] 5N ACUTE [address] [place] [phone] Ry Kong MD Naidoo, MD Ga Lopez Joshua, MD Kraemer, MD Bhumi Galindo Catherine, MD Kamel, MD Ashanti Gallo, Joya Taylor MD Vascular Surgery Discharge Disposition: Home or Self Care 05/21/2025 Travel 05/17/2025 Telephone [facility] - Vascular Surgery [address] [facility], [place] [phone] Glen Fischer MD Lower Leg Pain 05/17/2025 Travel from Last 3 Months Immunizations Immunization Administration Dates Next Due Covid Pfizer primary monoval ent 12+ yr 0.3mL Purple [...] and heating? Not hard at all 05/22/2025 [facility] [place] Level of Occupat ional Health - Occupational Stress [...] any time in the past 12 m [facility], were you homeless or living in a half-way (including now)? No 05/22/2025 Comments No Sex and Gender Information Value Date Recorded Sex Assigned at Not on file Legal Sex Female 9:57 AM CDT Gender Identity Not on file Sexual Orientation Not on file Last Filed Vital Signs Vital Sign Reading Time Taken Comments Blood Pressure 111/75 05/31/2025 9:59 AM CDT Pulse 91 05/31/2025 9:59 AM CDT Temperature 36.6 C (97.9 F) 05/31/2025 9:59 AM CDT Respiratory Rate 18 05/31/2025 9:59 AM CDT Oxygen Saturation 90% 05/31/2025 9:59 AM CDT Inhaled Oxygen Concentration 21% 05/26/2025 1 1:29 PM CDT Weight 88.5 kg (195 lb) 05/31/2025 9:59 AM CDT Height 160 cm (5' 3) 05/31/2025 9:59 AM CDT Body Mass Index 34.54 05/31/2025 9:59 AM CDT Plan of Treatment Upcoming Encounters Date Type Department Care Team (Late st Contact Info) Description 07/06/2025 2:00 PM CDT Appointment [facility] VASCULAR US [facility] [place] [address] Sabino Cespedes MD [address] [place] [address] 2L DIV OF PULMONARY/[place] [address] 07/06/2025 3:00 PM CDT Appointment [facility] VASCULAR US [address] [place] [address] Sabino Cespedes MD [address] [place] [address] 2L DIV OF PULMONARY/[place] [address] 07/12/2025 9:45 AM CDT Office Visit [facility] - Vascular Surgery [facility] [facility], [place] [address] Glen Fischer MD [address] [phone] Health Maintenance Due Date Last Done Comments [...] 01/20/1974 DTAP/TDAP/TD VACCINES (1 - Tdap) 01/24/1975 ZOSTER VACCINE (1 of 2) 01/24/2006 Respiratory [...] 2025 2, 09/29/2021, 09/03/2021, Additional history exists LUNG CANCER SCREENING 05/14/2026 05/14/2025 SCREENING FOR DIABETES 05/27/2028 5, 05/26/2025, 05/25/2025, [...] this topic Medical Devices Implanted Type [employer] Device Identifier Shelf Expiration Date Model / Serial / Lot Patch Cv 8x.8cm Photofix Decellularized Implanted:Qty: 1 on 04/14/2024 by Glen Fischer MD at [facility] Right: Aorta [employer] 09/11/2025 PFP0.8X8 / / [id number] Stent Eprsth Sprfc Fem Art Ilium 10cm 7 - [id number] Implanted:Qty: 1 on 04/14/2024 by Glen Fischer MD at [facility] Right: Aorta [employer] 08/09/2025 [id number] / [id number] / Patch Cv 8x.8cm Photofix Decellularized Implanted:Qty: 1 on 04/14/2024 by Glen Fischer MD at [facility] Right: Aorta [employer] 10/13/2025 PFP0.8X8 / / [id number] Graft Vasc 6mm 80cm 60cm Hep Propaten - [id number] Implanted:Qty: 1 on 05/22/2025 by Clara Tripathi MD at [facility] [employer] 03/10/2027 [id number] / [id number] / Description:Femoral-Femoral Bypass Procedures Procedure Name [...] DIFFERENTIAL Timed 05/24/2025 12:14 AM CDT PTT [facility] Routine 05/23/2025 3:59 AM CDT PT-INR [facility] Routine 05/23/2025 3:59 AM CDT CALCIUM IONIZED [...] Right leg swelling ACT LR - POCT ([facility]) Routine 05/22/2025 3:23 PM CDT ACT LR - POCT ([facility]) Routine 05/22/2025 3:01 PM CDT ACT LR - POCT ([facility]) Routine 05/22/2025 2:34 PM CDT PATHOLOGY TISSUE Routine 05/22/2025 2:01 PM CDT Limb ischemia ACT LR - POCT ([facility]) Routine 05/22/2025 1:54 PM CDT ARTERIAL LINE NOTE Routine 05/22/2025 1: 32 PM CDT ACT LR - POCT ([facility]) Routine 05/22/2025 1:19 PM CDT ACT LR - POCT ([facility]) Routine 05/22/2025 12:41 PM CDT ENDOTRACHEAL TUBE NOTE Routine 12:40 PM CDT BLOOD GAS+COOX+LYTES+METAB ARTERIAL POCT Routine 05/22/2025 12:12 PM CDT BLOOD GAS+COOX+LYTES+METAB ARTERIAL POCT Routine 05/22/2025 12:12 PM CDT ACT LR - POCT ([facility]) Routine 05/22/2025 12:08 PM CDT ME TEAEC W/GRAFT SUPERFICIAL FEMORAL ART 05/22/2025 11:05 [...] - 2.40 % 05/27/2025 6:20 AM CDT [facility] Reticulocyte Absolute 0.0748 0.0200 - 0.1100 x10E6/uL 05/27/2025 6:20 AM CDT [facility] Ret-HE 25.4(L) 29.0 - 37.9 pg 05/27/2025 6:20 AM CDT [facility] Immature Reticulocyte Fraction 44.5(H) 1.8 - 15.2 % 05/27/2025 6:20 AM CDT [facility] Blood BLOOD SPECIMEN / Unknown Venipuncture / Unknown 05/27/2025 5:44 AM CDT 05/27/2025 6:05 AM CDT us Dave Koroma MD LAB - HEMATOLOGY ORDERABLE S Final Result [facility] LABORATORY [facility] [address] [place] [address], [facility] [phone] * (ABNORMAL) CBC W/O DIFFERENTIAL (05/27/2025 5:44 AM CDT) Only the most recent of2 resultswithin the time period is included. WBC 5.4 4.0 - 10.7 x10E9/L 05/27/2025 6:20 AM [facility] RBC Count 2.92(L) 3.90 - 5.20 x10E12/L 05/27/2025 6:20 AM [facility] Hemoglobin 7.6(L) 11.9 - 15.8 g/dL 05/27/2025 6:20 AM [facility] Hematocrit 24.3(L) 34.8 - 46.1 % 05/27/2025 6:20 AM [facility] MCV 83.2 80.0 - 98.0 fL 05/27/2025 6:20 AM [facility] MCH 26.0(L) 26.7 - 33.6 pg 05/27/2025 6:20 AM [facility] MCHC 31.3(L) 31.7 - 36.3 g/dL 05/27/2025 6:20 AM [facility] RDW-CV 18.6(H) 11.3 - 14.8 % 05/27/2025 6:20 AM [facility] Platelet Count 258 150 - 420 x10E9/L 05/27/2025 6:20 AM [facility] MPV 8.9 7.8 - 11.4 fL 05/27/2025 6:20 AM [facility] Blood BLOOD SPECIMEN / Unknown Venipuncture / Unknown 05/27/2025 5:44 AM CDT 05/27/2025 6:05 AM CDT us Joya Burrell MD LAB - HEMATOLOGY ORDERABLES F inal Result [facility] [address] [place] [address], [facility] [phone] * (ABNORMAL) RENAL FUNCTION PANEL (05/27/2025 5:44 AM CDT) Only the most recent of2 resultswithin the time period is included. Pathologist [facility] BUN 20 7 - 26 mg/dL 05/27/2025 6:34 AM [facility] Creatinine 0.93 0.56 - 0.96 mg/dL 05/27/2025 6:34 AM [facility] Sodium 137 136 - 145 mmol/L 05/27/2025 6:34 AM [facility] Potassium 4.8(H) 3.5 - 4.5 mmol/L 05/27/2025 6:34 AM [facility] Chloride 103 98 - 107 mmol/L 05/27/2025 6:34 AM [facility] CO2 31(H) 22 - 29 mmol/L 05/27/2025 6:34 AM [facility] Glucose 125(H) 70 - 99 mg/dL 05/27/2025 6:34 AM [facility] Albumin 1.9(L) 3.4 - 5.0 g/dL 05/27/2025 6:34 AM [facility] Calcium 8.8 8.4 - 10.2 mg/dL 05/27/2025 6:34 AM [facility] Phosphorus 3.6 2.9 - 5.1 mg/dL 05/27/2025 6:34 AM [facility] Anion Gap 3(L) 6 - 16 05/27/2025 6:34 AM [facility] BUN/Creatinine Ratio 22 7 - 23 05/27/2025 6:34 AM [facility] Osmolality Calculated 288 275 - 295 mOsm/kg 05/27/2025 6:34 AM [facility] eGFR by CKD-EPI 67(L) >=90 mL/min/1.7 3 m2 05/27/2025 6:34 AM [facility] Comment:Estimated Glomerular Filtration Rate (eGFR) calculated using the CKD-EPI Creatinine Equation (2020), per the National Kidney Foundation and [place] [employer] Neph[employer] recommendations. Blood BLOOD SPECIMEN / Unknown Venipuncture / Unknown 05/27/2025 5:44 AM CDT 05/27/2025 6:05 AM CDT us Joya Burrell MD LAB - CHEMISTRY ORDERABLES Fi nal Result [address] [address], [facility] [phone] * MAGNESIUM BLOOD (05/27/2025 5:44 AM CDT) Only the most recent of5 resultswithin the time period is included. Magnesium 1.8 1.6 - 2.6 mg/dL 05/27/2025 6:34 AM CDT [facility] Blood BLOOD SPECIMEN / Unknown Venipuncture / Unknown 05/27/2025 5:44 AM CDT 05/27/2025 6:05 AM CDT us Joya Burrell MD LAB - CHEMISTRY ORDERABLES Fi nal Result Performing Organization Address [facility] Co de Phone Number [address] [address], [facility] [phone] * FOLATE (05/27/2025 5:44 AM CDT) Folate 12.5 7.0 - 31.4 ng/mL 05/27/2025 7:06 AM CDT [facility] Blood BLOOD SPECIMEN / Unknown Venipuncture / Unknown 05/27/2025 5:44 AM CDT 05/27/2025 6:05 AM CDT us Dave Koroma MD LAB - CHEMISTRY ORDERABLES Final Result Performing Organization Address City/[facility]/ZIP Co de Phone Number [address] [address], [facility] [phone] * (ABNORMAL) VITAMIN B12 (05/27/2025 5:44 AM CDT) Vitamin B12 212(L) 213 - 816 pg/mL 05/27/2025 7:06 AM CDT [facility] Blood BLOOD SPECIMEN / Unknown Venipuncture / Unknown 05/27/2025 5:44 AM CDT 05/27/2025 6:05 AM CDT us Dave Koroma MD LAB - CHEMISTRY ORDERABLES Final Result [address] [address], [facility] [phone] * (ABNORMAL) IRON + TRANSFERRIN PANEL (05/27/2025 5:44 AM CDT) [facility] Iron 19(L) 40 - 150 ug/dL 05/27/2025 6:54 AM CDT [facility] LABORATORY [facility] Transferrin 122(L) 174 - 382 mg/dL 05/27/2025 6:54 AM CDT [facility] Transferrin Saturation % 12(L) 16 - 50 % 05/27/2025 6:54 AM CDT [facility] TIBC Calculated 153(L) 240 - 450 ug/dL 05/27/2025 6:54 AM CDT [facility] Blood BLOOD SPECIMEN / Unknown Venipuncture / Unknown 05/27/2025 5:44 AM CDT 05/27/2025 5:59 AM CDT Dave Koroma MD LAB - CHEMISTRY ORDERABLES Final Result Performing Organization Address City/[facility]/ZIP Co de Phone Number [address] [address], [place] [phone] * FERRITIN (05/27/2025 5:44 AM CDT) [facility] Ferritin 86 13 - 204 ng/mL 05/27/2025 7:11 AM CDT [facility] Blood BLOOD SPECIMEN / Unknown Venipuncture / Unknown 05/27/2025 5:44 AM CDT 05/27/2025 5:59 AM CDT Dave Koroma MD LAB - CHEMISTRY ORDERABLES Final Result [address] [address], [place] [phone] * (ABNORMAL) HGB HCT PANEL (05/26/2025 1:27 PM CDT) [facility] Hemoglobin 8.0(L) 11.9 - 15.8 g/dL 05/26/2025 1:38 PM CDT [facility] Hematocrit 24.8(L) 34.8 - 46.1 % 05/26/2025 1:38 PM CDT [facility] Blood BLOOD SPECIMEN / Unknown Clinic Draw / Unknown 05/26/2025 1:27 PM CDT 05/26/2025 1:33 PM CDT us Dave Koroma MD LAB - HEMATOLOGY ORDERABLE S Final Result [facility] [address] [place] [address], [facility] [phone] * TRANSFUSE RED BLOOD CELL LEUKOREDUCED UNIT(S) (05/26/2025 9:23 AM CDT) Perez Quesada MD NURSING - BLOOD PROD TRANSFU RAF Final Result * PREPARE (CROSSMATCH) RBC UNIT(S), 1 Units (05/26/2025 3:27 AM CDT) Only the most recent of4 resultswithin the time period is included. [facility] Unit Description AS1 LR PRBC [facility] BLOOD BANK LAB Unit ABO O [facility] BLOOD [facility]ANK LAB Unit Rh POS [facility] BLOOD BANK LAB Product Number R02 [facility] B LOOD [facility]ANK LAB Unit Donor # [id number] [facility] BLOOD BANK LAB Unit Status transfused [facility] BLO OD BANK LAB Product Code [id number] [facility] BLO OD BANK LAB Blood Type Barcode 5100 [facility] BLOOD BANK LAB Expiration Date [id number] S BLOOD BANK LAB Blood Bank BLOOD SPECIMEN / Unknown 05/26/2025 3:27 AM CDT 05/26/2025 3:45 AM CDT us Perez Quesada MD LAB - BLOOD BANK ORDERABLES Final Result Performing Organization Address City/[facility]/ZIP Co de Phone Number [facility] BLOOD BANK LAB [address] [place] [address], [place] [phone] * TYPE + SCREEN PANEL (05/26/2025 3:27 AM CDT) Only the most recent of2 resultswithin the time period is included. Antibody Screen NEG 4:28 AM CDT [facility] BLOOD BANK LAB ABO Rh O POS 05/26/2025 4:28 AM CDT [facility] BLOOD BANK LAB Blood Bank BLOOD SPECIMEN / Unknown Venipuncture / Unknown 05/26/2025 3:27 AM CDT 05/26/2025 3:45 AM CDT Clara Tripathi MD LAB - BLOOD BANK ORDERABLES Final Result [facility] BLOOD BANK LAB [address] [place] [address], [place] [phone] * PTT [facility] (05/25/2025 3:29 AM CDT) Only the most recent of4 resultswithin the time period is included. Pathologist [facility] APTT 37.5 23.0 - 38.4 Seconds 05/25/2025 4:01 AM CDT [facility] LABORATORY [facility] Comment:Suggested therapeuti c range for full dose I.V. unfractionated heparin therapy for venous thromboembolism is 71 to 109 seconds. Blood BLOOD SPECIMEN / Unknown Venipuncture / Unknown 05/25/2025 3:29 AM CDT 05/25/2025 3:35 AM CDT Ry Kong MD LAB - COAGULATION ORDERABLES Final Result [facility]ATORY HOSPITAL [address] [place] [address], [place] [phone] * PT-INR [facility] (05/25/2025 3:29 AM CDT) Only the most recent of4 resultswithin the time period is included. Pathologist [facility] PT 14.5 12.1 - 14.8 Seconds 05/25/2025 4:01 AM CDT [facility] LABORATORY HOSPITAL INR 1.2 See Comment 05/25/2025 4:01 AM CDT [facility] Comment:The suggested therap eutic range for standard coumadin (warfarin) therapy is an INR of 2.0-3.0. For high-risk patients (Mechanical Mitral Valve Prosthesis, etc.), the suggested prophylactic therapeutic range is an INR of 2.5-3.5. Blood BLOOD SPECIMEN / Unknown Venipuncture / Unknown 05/25/2025 3:29 AM CDT 05/25/2025 3:35 AM CDT us Ry Kong MD LAB - COAGULATION ORDERABLES Final Result [facility] [address] [place] [address], [facility] [phone] * (ABNORMAL) CBC W AUTO DIFFERENTIAL (05/25/2025 3:29 AM CDT) Only the most recent of5 resultswithin the time period is included. WBC 5.6 4.0 - 10.7 x10E9/L 05/25/2025 3:46 AM [facility] RBC Count 2.76(L) 3.90 - 5.20 x10E12/L 05/25/2025 3:46 AM [facility] Hemoglobin 7.4(L) 11.9 - 15.8 g/dL 05/25/2025 3:46 AM [facility] Hematocrit 22.4(L) 34.8 - 46.1 % 05/25/2025 3:46 AM [facility] MCV 81.2 80.0 - 98.0 fL 05/25/2025 3:46 AM [facility] MCH 26.8 26.7 - 33.6 pg 05/25/2025 3:46 AM [facility] MCHC 33.0 31.7 - 36.3 g/dL 05/25/2025 3:46 AM [facility] RDW-CV 19.4(H) 11.3 - 14.8 % 05/25/2025 3:46 AM [facility] Platelet Count 218 150 - 420 x10E9/L 05/25/2025 3:46 AM [facility] MPV 8.5 7.8 - 11.4 fL 05/25/2025 3:46 AM [facility] Neutrophil % 61.6 41.0 - 74.0 % 05/25/2025 3:46 AM [facility] Lymphocyte % 22.2 17.0 - 47.0 % 05/25/2025 3:46 AM [facility] Monocyte % 13.8(H) 3.0 - 11.0 % 05/25/2025 3:46 AM [facility] Eosinophil % 1.3 0.0 - 7.0 % 05/25/2025 3:46 AM [facility] Basophil % 0.4 0.0 - 1.6 % 05/25/2025 3:46 AM [facility] Immature Granulocytes % 0.7 0.0 - 1.0 % 05/25/2025 3:46 AM [facility] Neutrophil Absolute 3.44 1.60 - 7.50 x10E9/L 05/25/2025 3:46 AM [facility] Lymphocyte Absolute 1.24 1.00 - 4.40 x10E9/L 05/25/2025 3:46 AM [facility] Monocyte Absolute 0.77 0.15 - 1.00 x10E9/L 05/25/2025 3:46 AM [facility] Eosinophil Absolute 0.07 0.00 - 0.60 x10E9/L 05/25/2025 3:46 AM [facility] Basophil Absolute 0.02 0.00 - 0.13 x10E9/L 05/25/2025 3:46 AM [facility] Blood BLOOD SPECIMEN / Unknown Venipuncture / Unknown 05/25/2025 3:29 AM T 05/25/2025 3:35 AM [facility] Clara Tripathi MD LAB - HEMATOLOGY ORDERABLES Final Result [facility] [address] [place] [address], [facility] [phone] * (ABNORMAL) BASIC METABOLIC PANEL (CALCIUM TOTAL) (05/25/2025 3:29 AM [facility]) Only the most recent of3 resultswithin the time period is included. BUN 14 7 - 26 mg/dL 05/25/2025 4:03 AM [facility] Creatinine 0.99(H) 0.56 - 0.96 mg/dL 05/25/2025 4:03 AM [facility] Sodium 134(L) 136 - 145 mmol/L 05/25/2025 4:03 AM [facility] Potassium 4.2 3.5 - 4.5 mmol/L 05/25/2025 4:03 AM [facility] Chloride 102 98 - 107 mmol/L 05/25/2025 4:03 AM [facility] CO2 28 22 - 29 mmol/L 05/25/2025 4:03 AM [facility] Glucose 124(H) 70 - 99 mg/dL 05/25/2025 4:03 AM [facility] Calcium 8.3(L) 8.4 - 10.2 mg/dL 05/25/2025 4:03 AM [facility] Anion Gap 4(L) 6 - 16 05/25/2025 4:03 AM [facility] BUN/Creatinine Ratio 14 7 - 23 05/25/2025 4:03 AM [facility] Osmolality Calculated 280 275 - 295 mOsm/kg 05/25/2025 4:03 AM [facility] eGFR by CKD-EPI 62(L) >=90 mL/min/1.7 3 m2 05/25/2025 4:03 AM [facility] Comment:Estimated Glomerular Filtration Rate (eGFR) calculated using the CKD-EPI Creatinine Equation (2020), per the National Kidney Foundation and [place] [employer] Neph[employer] recommendations. Blood BLOOD SPECIMEN / Unknown Venipuncture / Unknown 05/25/2025 3:29 AM CDT 05/25/2025 3:35 AM [facility] us Clara Tripathi MD LAB - CHEMISTRY ORDERABLES Final Result [facility] [address] [address], [facility] [phone] * PHOSPHORUS BLOOD (05/25/2025 3:29 AM CDT) Only the most recent of3 resultswithin the time period is included. Phosphorus 3.4 2.9 - 5.1 mg/dL 05/25/2025 4:03 AM CDT [facility] Blood BLOOD SPECIMEN / Unknown Venipuncture / Unknown 05/25/2025 3:29 AM CDT 05/25/2025 3:35 AM CDT Clara Tripathi MD LAB - CHEMISTRY ORDERABLES Final Result [address] [address], [facility] [phone] * VANCOMYCIN LEVEL TROUGH (05/25/2025 3:29 AM CDT) Pathologist [facility] Vancomycin Trough 12.0 10.0 - 20.0 ug/mL 05/25/2025 4:19 AM CDT [facility] Blood BLOOD SPECIMEN / Unknown Venipuncture / Unknown 05/25/2025 3:29 AM CDT 05/25/2025 4:09 AM CDT Narrative [facility] - 05/25/2025 4:19 AM CDT See institution protocol. Sabino Cespedes MD LAB - CHEMISTRY ORDERABLES Blanca l Result [address] [address], [facility] [phone] * VANCOMYCIN LEVEL RANDOM (05/24/2025 9:46 AM CDT) Vancomycin Random 20.5 Therapeutic Ranges not established for random specimens ug/mL 05/24/2025 11:53 AM CDT [facility] Blood BLOOD SPECIMEN / Unknown Venipuncture / Unknown 05/24/2025 9:46 AM CDT 05/24/2025 9:57 AM CDT Narrative [facility] - 05/24/2025 11:53 AM CDT See institution protocol. Sabino Cespedes MD LAB - CHEMISTRY ORDERABLES Blanca cornelius Result [facility] [address] [place] [address], [place] [phone] * (ABNORMAL) CALCIUM IONIZED WHOLE BLOOD (05/24/2025 12:14 AM CDT) Only the most recent of2 resultswithin the time period is included. Calcium Ionized 1.26 mmol/L 05/24/2025 12:27 AM CDT [facility] pH 7.34(L) 7.35 - 7.45 pH 05/24/2025 12:27 AM CDT [facility] Ionized Calcium pH Adjusted 1.23 1.19 - 1.34 mmol/L 05/24/2025 12:27 AM CDT [facility] Blood BLOOD SPECIMEN / Unknown Venipuncture / Unknown 05/24/2025 12:14 AM CDT 05/24/2025 12:22 AM CDT Clara Tripathi MD LAB - CHEMISTRY ORDERABLES Final Result Performing Organization Address City/[facility]/ZIP Co de Phone Number [facility] [address] [place] [address], [place] [phone] * [place] Mirta Albright Angio Team (05/22/2025 3:39 PM CDT) Narrative [facility] - 05/22/2025 3:40 PM CDT Fluoroscopy was used for this exam in the OR. Please see the Operative report. Clara Tripathi MD FLUOROSCOPY ORDERABLES Blanca l Result [facility] [facility] * ACT LR - POCT ([facility]) (05/22/2025 3:23 PM CDT) Only the most recent of7 resultswithin the time period is included. ACT LR 148 See result comments sec 05/23/2025 7:33 AM CDT [facility] Blood BLOOD SPECIMEN / Unknown 05/22/2025 3:23 PM CDT 05/23/2025 7:33 AM CDT Narrative [facility] - 05/23/2025 7:33 AM CDT ACT-LR [employer]rapeutics ranges are: Cardiac slab lifting supervisor = 200-300 seconds Sheath pull = ACT [...] established ranges from the company manual us Clara Tripathi MD LAB - COAGULATION ORDERABLE S Final Result [address] [address], [facility] [phone] * PATHOLOGY TISSUE (05/22/2025 2:01 PM CDT) Case Report Surgical Pathology Report Case: [id number] Authorizing Provider: Clara Tripathi MD Collected: 05/22/2025 02:01 PM Ordering Location: [facility] Received: 05/23/2025 04:26 AM Pathologist: Katarina Padilla MD Specimen: Groin Lymph Node, RIGHT GROIN LYMPH NODE 05/24/2025 11:48 AM CDT [facility] Final Diagnosis Lymph node, right groin, excision (A): - Benign lymph node with focal nonnecrotizing granuloma 05/24/2025 11:48 AM CDT [facility] at 1148 CDT Microscopic Description and Comment Microscopic examination substantiates the final diagnosis. 05/24/2025 11:48 AM CDT [facility] Clinical History The patient is a 70-year-old woman with a PMH of PAD, COPD, HTN, QUYEN, & HFpEF who was admitted for right leg pain and was found to have an occluded right iliac, occluded distal right external iliac artery. Underwent embolectomy of right iliofemoral artery with left to right femoral bypass. 05/24/2025 11:48 AM CDT [facility] Gross Description The requisition and specimen(s) are identified with the patient's name, Clara Paredes. Received in formalin, specimen A, is a single wong-pink focally disrupted lymph node 1.8 x 1.1 x 0.9 cm. The cut surfaces are wong-white to wong-pink and smooth. The node is serially sectioned and entirely submitted in cassette A1-A2. IKD 05/24/2025 11:48 AM CDT [facility] Pathologist Location at [facility] 05/24/2025 11:48 AM CDT [facility] Disclaimer The performance characteristics of all immunohistochemical and indirect immunofluorescence stains (if any) cited in this report were determined by the Histopathology Laboratory of [facility]. Some of these tests were developed by [...] attending (teaching) pathologist. 05/24/2025 11:48 AM CDT [facility] Embedded Images 05/24/2025 11:48 AM CDT [facility] Biopsy, NOS LYMPH NODE SPECIMEN / Unknown 05/22/2025 2:01 PM CDT 05/23/2025 4:26 AM CDT Comment:Pre-op diagnosis: Limb ischemia [I99.8] us Clara Tripathi MD LAB - PATHOLOGY/CYTOLOGY OR DERABLES Final Result [facility] [address] [place] [address], [facility] [phone] * ARTERIAL LINE PERFORMABLE (05/22/2025 1:32 PM CDT) Narrative Damir Werner, - 05/22/2025 1:32 PM CDT Damir Werner DO 05/22/2025 2:28 PM Arterial Line Placement Procedure Note Patient Location: OR. Insertion Time: 05/22/2025 11:55 AM Procedure: Arterial Line (23964) Procedure Section Indications: continuous blood pressure monitoring [...] Event Date/Time: 05/22/2025 11:38 AM Procedure: intubation ([id number]) Procedure Section: Sedation: under general anesthesia. Indications [...] the procedure Provider #1: Kemi Duval MD. us Kemi Duval MD GENERAL ANESTHESIA ORDERABLES Final Result * (ABNORMAL) BLOOD GAS+COOX+LYTES+METAB ARTERIAL POCT (05/22/2025 12:12 PM [facility]) Only the most recent of2 resultswithin the time period is included. pH Arterial 7.41 7.35 - 7.45 pH 05/22/2025 12:12 PM [facility] pO2 Arterial 249(H) 80 - 100 mmHg 05/22/2025 12:12 PM [facility] pCO2 Arterial 43 35 - 45 mmHg 12:12 PM [facility] HCO3 Arterial 27.3 20.0 - 30.0 mmol/L 05/22/2025 12:12 PM [facility] BE Arterial 2.4(H) -2.0 - 2.0 mmol/L 05/22/2025 12:12 PM [facility] Oxyhemoglobin Arterial 96.9 % 05/22/2025 12:12 PM [facility] Dexoyhemoglobin (HHB) % <1.0 % 05/22/2025 12:12 PM [facility] Methemoglobin 1.3 0.0 - 2.0 % 05/22/2025 12:12 PM [facility] Carboxyhemoglobin 1.9 0.0 - 2.0 % 2024 12:12 PM [facility] Comment:Carboxyhemoglobin No rmal Concentration: Non-smokers: 0-2%; Smokers: 0- 9%; Toxic: >20% O2 Content Arterial 13.6 Interpret within clinical context ml/dL 05/22/2025 12:12 PM [facility] Hemoglobin by COOX 9.5(L) 12.0 - 15.6 g/dL 05/22/2025 12:12 PM [facility] O2 Saturation Arterial 100 90 - 100 % 05/22/2025 12:12 PM [facility] Sodium Whole Blood 134(L) 135 - 145 mmol/L 05/22/2025 12:12 PM [facility] Potassium Whole Blood 3.9 3.5 - 5.5 mmol/L 05/22/2025 12:12 PM [facility] Chloride WB 103 78 - 107 mmol/L 05/22/2025 12:12 PM CDT [facility] Calcium Ionized 1.16 mmol/L 12:12 PM CDT [facility] Ionized Calcium pH Adjusted 1.16(L) 1.19 - 1.34 mmol/L 05/22/2025 12:12 PM CDT [facility] Anion Gap (AG) Arterial 4(L) 6 - 16 mmol/L 05/22/2025 12:12 PM CDT [facility] Glucose WB 97 70 - 99 mg/dL 05/22/2025 12:12 PM CDT [facility] Lactic Acid Whole Blood 0.6 <=2.0 mmol/L 05/22/2025 12:12 PM CDT [facility] Blood, arterial ARTERIAL BLOOD SPECIMEN / Unknown 05/22/2025 12:12 PM CDT 05/22/2025 12:13 PM CDT Clara Tripathi MD LAB - POINT OF CARE ORDERAB LES Final Result [facility] [address] [place] [address], [facility] [phone] * CT Angio Lower Extremity Right (05/22/2025 [...] leg. Report dictated by Francisco Harmon MD, (Bacteriology Professor). I, Bert Bonilla MD have personally reviewed [...] leg. Report dictated by Francisco Harmon MD, (Bacteriology Professor). I, Bert Bonilla MD have personally reviewed and interpreted this examination/study. > Interpreting Provider: Bert Bonilla MD on 05/22/2025 4:47AM Ry Kong MD CT ORDERABLES Final Result * (ABNORMAL) C-REACTIVE PROTEIN (05/21/2025 4:37 PM CDT) C-Reactive Protein 8.8(H) <=0.5 mg/dL 05/21/2025 5:12 PM CDT [facility] Blood BLOOD SPECIMEN / Unknown Venipuncture / Unknown 05/21/2025 4:37 PM CDT 05/21/2025 4:44 PM CDT Niurka Sheehan PA-C LAB - CHEMISTRY ORDERABLES Blanca l Result [address] [address], [facility] [phone] * (ABNORMAL) ERYTHROCYTE SEDIMENTATION RATE (05/21/2025 4:37 PM CDT) Erythrocyte Sedimentation Rate Westergren >130(H) 0 - 30 MM/HR 05/21/2025 5:09 PM CDT [facility] Blood BLOOD SPECIMEN / Unknown Venipuncture / Unknown 05/21/2025 4:37 PM CDT 05/21/2025 4:44 PM CDT Niurka Sheehan PA-C LAB - HEMATOLOGY ORDERABLES Kapil mora Result Performing Organization Address [facility] Co de Phone Number [address] [address], [facility] [phone] * (ABNORMAL) COMPREHENSIVE METABOLIC PANEL (05/21/2025 4:37 PM CDT) Pathologist [facility] BUN 14 7 - 26 mg/dL 05/21/2025 5:12 PM T [facility] Creatinine 0.99(H) 0.56 - 0.96 mg/dL 05/21/2025 5:12 PM [facility] Sodium 137 136 - 145 mmol/L 05/21/2025 5:12 PM [facility] Potassium 4.2 3.5 - 4.5 mmol/L 05/21/2025 5:12 PM [facility] Chloride 105 98 - 107 mmol/L 05/21/2025 5:12 PM [facility] CO2 24 22 - 29 mmol/L 05/21/2025 5:12 PM [facility] Glucose 97 70 - 99 mg/dL 05/21/2025 5:12 PM [facility] Calcium 8.9 8.4 - 10.2 mg/dL 05/21/2025 5:12 PM [facility] Protein Total 7.6 6.0 - 8.3 g/dL 05/21/2025 5:12 PM [facility] Albumin 2.8(L) 3.4 - 5.0 g/dL 05/21/2025 5:12 PM [facility] Bilirubin Total 0.2 0.2 - 1.2 mg/dL 05/21/2025 5:12 PM [facility] Alkaline Phosphatase 122 40 - 150 U/L 05/21/2025 5:12 PM [facility] ALT 10 5 - 55 U/L 05/21/2025 5:12 PM [facility] AST 11 5 - 34 U/L 05/21/2025 5:12 PM [facility] Anion Gap 8 6 - 16 05/21/2025 5:12 PM [facility] BUN/Creatinine Ratio 14 7 - 23 05/21/2025 5:12 PM [facility] Osmolality Calculated 284 275 - 295 mOsm/kg 05/21/2025 5:12 PM [facility] Albumin/Globulin Ratio 0.6(L) 1.1 - 2.3 05/21/2025 5:12 PM [facility] eGFR by CKD-EPI 62(L) >=90 mL/min/1.7 3 m2 05/21/2025 5:12 PM [facility] Comment:Estimated Glomerular Filtration Rate (eGFR) calculated using the CKD-EPI Creatinine Equation (2020), per the National Kidney Foundation and [place] [employer]ph[employer] recommendations. Blood BLOOD SPECIMEN / Unknown Venipuncture / Unknown 05/21/2025 4:37 PM CDT 05/21/2025 4:44 PM T us Niurka Sheehan PA-C LAB - CHEMISTRY ORDERABLES Blanca cornelius Result [facility] [address] [place] [address], [place] [phone] from Last 3 Months Insurance [employer] D[place] Advance Directives * Full Code (Latest Code Status on File) Date Activated Date Inactivated Comments 05/22/2025 5:05 AM 05/27/2025 4:59 PM * Full Code Date Activated Date Inactivated Comments 04/14/2024 1:03 PM 04/16/2024 4:25 PM Care Teams Media Arts Professor Relationship Specialty Start Date End Date Keegan Merino MD [address] [place] [id number] PCP - General Family Medicine 04/12/24
== END 2025-06-04 13:10 | disposition home or self-care (01) ==
LOC: CHSLAB 13:14
PROVIDERS: PCP Emergency Medicine
DX: M86.9 Osteomyelitis, unspecified (principal); M85.88 Other specified disorders of bone density and structure, other site
CPT/HCPCS: 73630